=== PATIENT | female | born 1970 | race Caucasian/White ===

== ENCOUNTER → 2016-05-03 | Outpatient (CLI) | payer OTHER ==
--- NOTE | 2016-05-06 12:31 | MM ---
Reason for exam: screening (asymptomatic). Last mammogram was performed 1 year and 2 months ago. History: Took hormonal contraceptives for 10 years. Physical Findings: A clinical breast exam by your physician is recommended on an annual basis and results should be correlated with mammographic findings. MG Screening Mammo w CAD Bilateral CC and MLO view(s) were taken. Prior study comparison: March 10, 2015, bilateral MG screening mammo w CAD. January 28, 2014, bilateral MG screening mammo w CAD. There are scattered fibroglandular densities. No significant changes when compared with prior studies. ASSESSMENT: Negative, BI-RAD 1 RECOMMENDATION: Routine screening mammogram of both breasts in 1 year.
== END | disposition home or self-care (01) ==
LOC: RADMAMWWP 12:47
PROVIDERS: ATTEND Pediatrics
DX: Z12.31 Encounter for screening mammogram for malignant neoplasm of breast (principal)

== ENCOUNTER → 2016-07-24 | Outpatient (CLI) | payer OTHER ==
--- NOTE | 2016-07-24 12:55 | XR ---
Cervical spine HISTORY: Neck pain 3 views of the cervical spine No comparisons There is reversal the normal cervical lordosis. Minimal anterolisthesis grade 1 or 5. Loss of disc he ight C5-6, C6-7 with associated spondylosis. Prevertebral soft tissues are normal. IMPRESSION: Degenerative disc disease.
--- NOTE | 2016-07-24 13:28 | XR ---
Right shoulder HISTORY: Pain 3 views of the right shoulder No comparisons Bone mineralization, joint spaces and alignment are maintained. Right lung apex as visualized is norm al. Some hypertrophic change present at the acromioclavicular joint. IMPRESSION: Acromioclavicular joint arthropathy.
== END | disposition home or self-care (01) ==
LOC: RADXRMAIN 09:16
PROVIDERS: ATTEND Pediatrics
DX: M50.30 Other cervical disc degeneration, unspecified cervical region (principal); M12.811 Other specific arthropathies, not elsewhere classified, right shoulder
CPT/HCPCS: 72040

== ENCOUNTER → 2016-09-20 | Outpatient (CLI) | payer OTHER ==
--- NOTE | 2016-09-20 16:20 | MR ---
EXAMINATION TYPE: MR cervical spine wo con DATE OF EXAM: 09/20/2016 COMPARISON: NONE HISTORY: Neck pain, Rt arm pain/weakness TECHNIQUE: Multiplanar, multisequence images of the cervical spine were acquired. C2-C3: Posterior extension of endplate disc complex causes mild anterior mass effect on the thecal sa c in the right paracentral location. No significant stenosis or foraminal encroachment. C3-C4: Small posterior disc protrusion causes minimal anterior mass effect on the thecal sac, lateral extension of endplate disc complex causes minimal left-sided foraminal encroachment. C4-C5: Central posterior disc protrusion contacts anterior cervical cord. Only mild left-sided forami nal encroachment. C5-C6: Posterior extension of disc herniation contacts anterior cervical cord, there is bilateral for aminal encroachment due to circumferential extension of endplate disc complex. On mild central stenos is. C6-C7: Circumferential extension of endplate disc complex causes bilateral foraminal encroachment, mi ld anterior mass effect on the thecal sac. C7-T1: No evidence for degenerative disc disease. No disc bulge/herniation or protrusion. No Canal stenosis. Foramina are patent bilaterally. Cervical segments are intact. There is normal alignment. Cervical spinal cord is of normal signal. Craniovertebral junction relationships are within normal limits. Cervical vertebral bodies show pre served height and there is minimal retrolisthesis grade 1 C5-6, C6-7. There is loss of normal cervica l lordosis. Multilevel spondylosis is present, there is endplate discogenic marrow signal change with associated loss of disc height and signal at C4-5, C5-6 and C6-7. IMPRESSION: Degenerative disc disease and foraminal encroachment as described.
== END | disposition home or self-care (01) ==
LOC: RADMRIMAIN 15:06
PROVIDERS: ATTEND Physical Medicine & Rehabilitation
DX: M50.11 Cervical disc disorder with radiculopathy, high cervical region (principal); M19.011 Primary osteoarthritis, right shoulder
CPT/HCPCS: 72141

== ENCOUNTER → 2017-01-06 | Outpatient (CLI) | payer OTHER | END | disposition home or self-care (01) | LOC: RADMRIMAIN 07:36 | PROVIDERS: ATTEND Orthopaedic Surgery | DX: Z53.9 Procedure and treatment not carried out, unspecified reason (principal) ==

== ENCOUNTER → 2017-02-18 | Outpatient (CLI) | payer OTHER | END | disposition home or self-care (01) | LOC: LABWHC1 08:50 | PROVIDERS: ATTEND Nurse Practitioner Acute Care | DX: R90.82 White matter disease, unspecified (principal) | CPT/HCPCS: 36415; 82040; 82042; 82784; 83916 ==

== ENCOUNTER → 2017-04-18 | Outpatient (CLI) | payer OTHER ==
[2017-04-18 10:06] LABS: C Reactive Protein <5.0 mg/L (<10.0); Creatine Kinase 29 U/L (30-135)
[2017-04-18 16:08] LABS: Iron Saturation 24.12 (12.00-45.00)
== END | disposition home or self-care (01) ==
LOC: LABWHC1 08:56
PROVIDERS: ATTEND Nurse Practitioner Acute Care
DX: R90.82 White matter disease, unspecified (principal); R41.3 Other amnesia
CPT/HCPCS: 36415; 82085; 82550; 82728; 83540; 83550; 85652; 86038; 86140

== ENCOUNTER → 2017-10-11 | Outpatient (CLI) | payer OTHER ==
--- NOTE | 2017-10-12 20:51 | MR ---
EXAMINATION TYPE: MR brain wo/w con DATE OF EXAM: 10/11/2017 COMPARISON: Prior MRI brain December 19, 2016. HISTORY: White matter changes per order and patient. TECHNIQUE: Multiplanar, multisequence images of the brain and brainstem is performed without and with IV contras t, utilizing 9.5 mL intravenous Gadavist gadolinium contrast is administered intravenously. Demyelin ating disease protocol with additional Sagittal Flair sequence performed. FINDINGS: T2 Lesions Present : Yes Approximate Number of Lesions: Approximately 4-6 Locations Identified : Scattered Size of Reference Lesion(s): 1. A dominant 11 x 6 x 13 mm left frontal periventricular lesion axial image 17 and sagittal image 14 felt stable Enhancing Lesion(s) Present: No T1 Hypointense Lesion(s) Present: Yes Change from Prior: Stable Diffusion weighted images demonstrate no evidence of a recent infarct or other diffusion abnormality. There is no worrisome extra-axial fluid collection. The ventricular system and cisternal spaces ar e normal in size and appearance. The brain volume is age appropriate. Midline structures demonstrate normal morphology. The craniocervical junction appears within normal limits. Post contrast images demonstrate no abnormal enhancement. The dural venous sinuses appear pa tent. The visualized sinuses are clear and the globes are intact. Increased fluid signal right masto id air cells is now present. IMPRESSION: 1. Stable mild nonspecific white matter changes. No new or enhancing lesions are seen. 2. New focal fluid signal right mastoid air cells raises concern for mastoiditis, correlate clinicall y.
== END | disposition home or self-care (01) ==
LOC: RADMRIMAIN 13:59
PROVIDERS: ATTEND Nurse Practitioner Acute Care
DX: R90.89 Other abnormal findings on diagnostic imaging of central nervous system (principal)
CPT/HCPCS: 70553; A9581

== ENCOUNTER → 2017-10-31 | Outpatient (CLI) | payer OTHER ==
--- NOTE | 2017-11-03 12:42 | MM ---
Reason for exam: screening (asymptomatic). Last mammogram was performed 1 year and 6 months ago. History: Took hormonal contraceptives for 10 years. Physical Findings: A clinical breast exam by your physician is recommended on an annual basis and results should be correlated with mammographic findings. MG Screening Mammo w CAD Bilateral CC and MLO view(s) were taken. Prior study comparison: May 03, 2016, bilateral MG screening mammo w CAD. March 10, 2015, bilateral MG screening mammo w CAD. There are scattered fibroglandular densities. There is no discrete abnormality. No significant changes when compared with prior studies. ASSESSMENT: Negative, BI-RAD 1 RECOMMENDATION: Routine screening mammogram of both breasts in 1 year.
== END | disposition home or self-care (01) ==
LOC: RADMAMWWP 07:56
PROVIDERS: ATTEND Pediatrics
DX: Z12.31 Encounter for screening mammogram for malignant neoplasm of breast (principal)
CPT/HCPCS: 77067

== ENCOUNTER 2018-03-13 21:49 | Emergency (ER) | payer OTHER ==
[2018-03-13 22:11] VITALS: BP 115/81; PULSE 78; RESP 18; TEMP 98.3
--- NOTE | 2018-03-13 22:27 | ED ---
Syncope HPI - General Chief Complaint: Syncope Stated Complaint: tonsillitis, passed out, face injury Time Seen by Provider: 03/13/18 22:13 Source: patient, family Mode of arrival: wheelchair Limitations: no limitations - History of Present Illness Initial Comments: This patient is a 47-year-old woman who presents to be evaluated after she had a syncopal episode at home. The patient states she had not been feeling well for number days and then had seen her primary physician, was diagnosed tonsillitis and started antibiotic. She states she has had 1 day of antibiotic coverage. Tonight she went to use the bathroom. As she was walking to the commode she was feeling funny and lightheaded. She sat down, and then she states that she lost consciousness and fell off of the commode striking the left side of her head. She currently is complaining of some neck pain at the base of her neck and headache. Patient did not have any chest pain, palpitations, dyspnea or diaphoresis. She states that when she was younger she used to have passing out episodes but has not had one for many years. MD Complaint: loss of consciousness, collapsed Onset/Timin -: hour(s) Prodromal Symptoms: lightheaded Current Symptoms: back to baseline Treatments Prior to Arrival: none - Related Data Home Medications Medication Instructions Recorded Confirmed Fluticasone Propionate 2 spr INTRANASAL HS 01/06/14 08/05/14 Levothyroxine Sodium [Synthroid] 100 mcg PO DAILY 01/06/14 08/05/14 Previous Rx's Medication Instructions Recorded Acetaminophen-Codeine 300-30mg 1 - 2 each PO Q4HR PRN #40 tab 08/07/14 [Tylenol w/codeine #3] Ibuprofen [Motrin] 600 mg PO QID PRN #40 tab 08/07/14 Allergies Allergy/AdvReac Type Severity Reaction Status Date / Time azithromycin [From Zithromax] AdvReac DROP IN Verified 03/13/18 22:50 BLOOD PRESSURE moxifloxacin HCl AdvReac LOW BLOOD Verified 03/13/18 22:50 [From Avelox] PRESSURE Review of Systems ROS Statement: Those systems with pertinent positive or pertinent negative responses have been documented in the HPI. ROS Other: All systems not noted in ROS Statement are negative. Constitutional: Denies: fever, chills, weakness Eyes: Denies: eye pain, vision change ENT: Denies: hearing loss, epistaxis Respiratory: Denies: cough, dyspnea Cardiovascular: Reports: syncope. Denies: chest pain, palpitations, dyspnea on exertion, edema Gastrointestinal: Denies: abdominal pain, nausea, vomiting Genitourinary: Denies: dysuria, hematuria Musculoskeletal: Denies: back pain Skin: Denies: rash Neurological: Reports: as per HPI, headache. Denies: weakness, numbness, confusion Past Medical History Past Medical History: Thyroid Disorder Additional Past Medical History / Comment(s): HYPOTENSION History of Any Multi-Drug Resistant Organisms: None Reported Past Surgical History: Orthopedic Surgery, Tubal Ligation, Uterine Ablation Additional Past Surgical History / Comment(s): RIGHT KNEE SURGERY X4, LEFT KNEE SURGERY X4, LEEP PROCEDURE, JAW SURGERY, Past Anesthesia/Blood Transfusion Reactions: Motion Sickness Past Psychological History: No Psychological Hx Reported Smoking Status: Current every day smoker Past Alcohol Use History: Rare Past Drug Use History: None Reported - Past Family History Mother Family Medical History: Diabetes Mellitus General Exam Limitations: no limitations General appearance: alert, in no apparent distress Head exam: Present: atraumatic, normocephalic Eye exam: Present: normal appearance. Absent: scleral icterus, conjunctival injection ENT exam: Present: mucous membranes dry Neck exam: Present: tenderness, other (Cervical collar) Respiratory exam: Present: normal lung sounds bilaterally. Absent: respiratory distress, wheezes, rales, rhonchi, stridor, chest wall tenderness Cardiovascular Exam: Present: regular rate, normal rhythm, normal heart sounds. Absent: systolic murmur, diastolic murmur, rubs, gallop GI/Abdominal exam: Present: soft. Absent: distended, tenderness, guarding, rebound, rigid Extremities exam: Present: normal inspection, normal capillary refill. Absent: pedal edema, calf tenderness Back exam: Present: normal inspection. Absent: CVA tenderness (R), CVA tenderness (L) Neurological exam: Present: alert, oriented X3, CN II-XII intact. Absent: motor sensory deficit Skin exam: Present: warm, dry, intact, normal color. Absent: rash Course Vital Signs 03/13/18 03/14/18 22:06 01:01 Temperature 98.3 F Pulse Rate 78 Respiratory 18 Rate Blood Pressure 115/81 O2 Sat by Pulse 100 97 Oximetry EKG Findings - EKG Results: EKG: interpreted by INLA LIRIANO, sinus rhythm, normal axis, normal QRS, normal ST/ T, no acute changes - [place], Pacemaker, Normal: Normal tracing: normal tracing Medical Decision Making - Medical Decision Making Patient's 47-year-old woman with syncopal episode after walking to the commode and sitting down. She has returned to baseline. They're not appear to be any seizure type symptoms. Following workup, did discuss possible observation admission versus going home and the patient states she feels better and would like to go home. We discussed further care and return parameters. - Lab Data Result diagrams: 03/13/18 23:59 03/13/18 23:59 Lab Results 03/13/18 03/13/18 03/13/18 Range/Units 23:59 23:59 23:59 WBC 13.1 H (3.8-10.6) k/uL RBC 5.32 (3.80-5.40) m/uL Hgb 15.8 (11.4-16.0) gm/dL Hct 48.5 H (34.0-46.0) % MCV 91.3 (80.0-100.0) fL MCH 29.7 (25.0-35.0) pg MCHC 32.6 (31.0-37.0) g/dL RDW 14.0 (11.5-15.5) % Plt Count 305 (150-450) k/uL Neutrophils % 79 % Lymphocytes % 12 % Monocytes % 6 % Eosinophils % 1 % Basophils % 0 % Neutrophils # 10.3 H (1.3-7.7) k/uL Lymphocytes # 1.6 (1.0-4.8) k/uL Monocytes # 0.8 (0-1.0) k/uL Eosinophils # 0.2 (0-0.7) k/uL Basophils # 0.0 (0-0.2) k/uL PT 9.5 (9.0-12.0) sec INR 0.9 (<1.2) APTT 24.0 (22.0-30.0) sec D-Dimer 0.35 (<0.60) mg/L FEU Sodium (137-145) mmol/L Potassium (3.5-5.1) mmol/L Chloride (98-107) mmol/L Carbon Dioxide (22-30) mmol/L Anion Gap mmol/L BUN (7-17) mg/dL Creatinine (0.52-1.04) mg/dL Est GFR (CKD-EPI)AfAm (>60 ml/min/1.73 sqM) Est GFR (CKD-EPI)NonAf (>60 ml/min/1.73 sqM) Glucose (74-99) mg/dL Calcium (8.4-10.2) mg/dL Total Bilirubin (0.2-1.3) mg/dL AST (14-36) U/L ALT (9-52) U/L Alkaline Phosphatase (38-126) U/L Total Creatine Kinase 43 (30-135) U/L CK-MB (CK-2) 0.3 (0.0-2.4) ng/mL CK-MB (CK-2) Rel Index 0.7 Troponin I <0.012 (0.000-0.034) ng/mL Total Protein (6.3-8.2) g/dL Albumin (3.5-5.0) g/dL Urine Color Urine Appearance (Clear) Urine pH (5.0-8.0) Ur Specific [place] (1.001-1.035) Urine Protein (Negative) Urine Glucose (UA) (Negative) Urine Ketones (Negative) Urine Blood (Negative) Urine Nitrite (Negative) Urine Bilirubin (Negative) Urine Urobilinogen (<2.0) mg/dL Ur Leukocyte Esterase (Negative) 03/13/18 03/13/18 Range/Units 23:59 23:59 WBC (3.8-10.6) k/uL RBC (3.80-5.40) m/uL Hgb (11.4-16.0) gm/dL Hct (34.0-46.0) % MCV (80.0-100.0) fL MCH (25.0-35.0) pg MCHC (31.0-37.0) g/dL RDW (11.5-15.5) % Plt Count (150-450) k/uL Neutrophils % % Lymphocytes % % Monocytes % % Eosinophils % % Basophils % % Neutrophils # (1.3-7.7) k/uL Lymphocytes # (1.0-4.8) k/uL Monocytes # (0-1.0) k/uL Eosinophils # (0-0.7) k/uL Basophils # (0-0.2) k/uL PT (9.0-12.0) sec INR (<1.2) APTT (22.0-30.0) sec D-Dimer (<0.60) mg/L FEU Sodium 136 L (137-145) mmol/L Potassium 4.3 (3.5-5.1) mmol/L Chloride 99 (98-107) mmol/L Carbon Dioxide 28 (22-30) mmol/L Anion Gap 9 mmol/L BUN 16 (7-17) mg/dL Creatinine 0.80 (0.52-1.04) mg/dL Est GFR (CKD-EPI)AfAm >90 (>60 ml/min/1.73 sqM) Est GFR (CKD-EPI)NonAf 88 (>60 ml/min/1.73 sqM) Glucose 119 H (74-99) mg/dL Calcium 9.5 (8.4-10.2) mg/dL Total Bilirubin 0.6 (0.2-1.3) mg/dL AST 42 H (14-36) U/L ALT 66 H (9-52) U/L Alkaline Phosphatase 115 (38-126) U/L Total Creatine Kinase (30-135) U/L CK-MB (CK-2) (0.0-2.4) ng/mL CK-MB (CK-2) Rel Index Troponin I (0.000-0.034) ng/mL Total Protein 7.5 (6.3-8.2) g/dL Albumin 4.3 (3.5-5.0) g/dL Urine Color Yellow Urine Appearance Clear (Clear) Urine pH 7.5 (5.0-8.0) Ur Specific [place] 1.016 (1.001-1.035) Urine Protein Negative (Negative) Urine Glucose (UA) Negative (Negative) Urine Ketones 2+ H (Negative) Urine Blood Negative (Negative) Urine Nitrite Negative (Negative) Urine Bilirubin Negative (Negative) Urine Urobilinogen <2.0 (<2.0) mg/dL Ur Leukocyte Esterase Negative (Negative) Disposition Clinical Impression: Vasovagal syncope Disposition: HOME SELF-CARE Condition: Good Instructions: Syncope (ED) Is patient prescribed a controlled substance at d/c from ED?: No Referrals: José Luis Solano MD [Primary Care Provider] - 1-2 days
[2018-03-13] MEDS ORDERED: SODIUM CHLORIDE 0.9% 500 ML 500 ML IV STA (22:38)
--- NOTE | 2018-03-13 23:39 | XR ---
EXAMINATION TYPE: XR chest 1V portable DATE OF EXAM: 03/13/2018 COMPARISON: NONE HISTORY: Fall. Syncope TECHNIQUE: Single frontal view of the chest is obtained. FINDINGS: Heart and mediastinum are normal. Lungs are clear. Diaphragm is normal. Bony thorax appear s normal. IMPRESSION: Normal chest.
--- NOTE | 2018-03-13 23:41 | CT ---
EXAMINATION TYPE: CT brain mark carcamo DATE OF EXAM: 03/13/2018 COMPARISON: None HISTORY: syncope neck pain. Headache. CT DLP: 1268 mGycm Automated exposure control for dose reduction was used. TECHNIQUE: CT scan of the head and cervical spine are performed without contrast. FINDINGS: Ventricles of normal size. There is no mass effect nor midline shift. There is no sign of intracranial hemorrhage. Calvarium is intact. The cervical vertebra have fairly normal alignment. There is straightening of the spine. There is a f ew millimeter anterior subluxation of C4 in relation to C5. Posterior elements are intact. There is h ypertrophic facet arthropathy on the left side at C4-5. The skull base is intact. There is no evidenc e of cervical spine fracture. There is narrowing of disc spaces at C5-6 C6-7. IMPRESSION: Spondylotic changes in the cervical spine. No fracture seen. Negative CT scan of the brain.
[2018-03-14] MEDS ORDERED: KETOROLAC 30 MG/ML 1 ML VIAL IVP STA (00:02)
[2018-03-14 00:13] LABS: Basophils % (A) 0 %; Eosinophils # (A) 0.2 k/uL (0-0.7); Eosinophils % (A) 1 %; HCT 48.5 % (34.0-46.0); HGB 15.8 gm/dL (11.4-16.0); Lymphocytes # (A) 1.6 k/uL (1.0-4.8); Lymphocytes % (A) 12 %; MCH 29.7 pg (25.0-35.0); MCHC 32.6 g/dL (31.0-37.0); MCV 91.3 fL (80.0-100.0); Mean Platelet Volume 6.7; Monocytes # (A) 0.8 k/uL (0-1.0); Monocytes % (A) 6 %; Neutrophils # (A) 10.3 k/uL (1.3-7.7); Neutrophils % (A) 79 %; Platelet Count 305 k/uL (150-450); RBC 5.32 m/uL (3.80-5.40); WBC 13.1 k/uL (3.8-10.6)
[2018-03-14 00:25] LABS: Appearance,Urine Clear (Clear); Bilirubin,Urine Negative (Negative); Blood,Urine Negative (Negative); Color,Urine Yellow; Glucose,Urine (UA) Negative (Negative); Ketones,Urine 2+ (Negative); Leukocyte Esterase,Urine Negative (Negative); Nitrite,Urine Negative (Negative); PH, Urine 7.5 (5.0-8.0); Protein,Urine Negative (Negative); Specific Gravity,Urine 1.016 (1.001-1.035); Urobilinogen,Urine <2.0 mg/dL (<2.0)
[2018-03-14 00:26] LABS: ALT 66 U/L (9-52); AST 42 U/L (14-36); Albumin 4.3 g/dL (3.5-5.0); Alkaline Phosphatase 115 U/L (38-126); Anion Gap 9 mmol/L; Blood Urea Nitrogen 16 mg/dL (7-17); Calcium 9.5 mg/dL (8.4-10.2); Carbon Dioxide 28 mmol/L (22-30); Chloride 99 mmol/L (98-107); D-Dimer 0.35 mg/L FEU (<0.60); Glucose 119 mg/dL (74-99); INR 0.9 (<1.2); Potassium 4.3 mmol/L (3.5-5.1); Prothrombin Time 9.5 sec (9.0-12.0); Sodium 136 mmol/L (137-145); Total Bilirubin 0.6 mg/dL (0.2-1.3); Total Protein 7.5 g/dL (6.3-8.2)
[2018-03-14 00:36] LABS: Creatine Kinase 43 U/L (30-135)
[2018-03-14 00:49] LABS: Creatine Kinase MB 0.3 ng/mL (0.0-2.4); Troponin I <0.012 ng/mL (0.000-0.034)
== END 2018-03-14 01:30 | disposition home or self-care (01) ==
LOC: EC 21:49
DX: R55 Syncope and collapse (principal); R51 Headache; R42 Dizziness and giddiness; M54.2 Cervicalgia; E07.9 Disorder of thyroid, unspecified; F17.200 Nicotine dependence, unspecified, uncomplicated; Z79.890 Hormone replacement therapy; Z79.899 Other long term (current) drug therapy; Z88.1 Allergy status to other antibiotic agents
CPT/HCPCS: 36415; 93005; 85379; 80053; 82550; 82553; 84484; 85025; 85610; 85730; 81003; 71045; 72125; 70450; 99284; 96374; J1885

== ENCOUNTER → 2018-08-25 | Outpatient (CLI) | payer OTHER ==
--- NOTE | 2018-08-25 08:23 | US ---
EXAMINATION TYPE: US pelvic complete DATE OF EXAM: 08/25/2018 COMPARISON: CT 2010, US 2013 CLINICAL HISTORY: R10.30 Lower abdominal pain, unspecified. Patient feels lump LLQ TECHNIQUE: Transvaginal (TV). Transabdominal sonographic images of the pelvis were not acquired due to empty bladder. Transvaginal sonographic images were medically necessary to better assess the fol lowing anatomy: all Date of LMP: hysterectomy 4 years ago EXAM MEASUREMENTS: Uterus: Surgically absent cm Endometrial Stripe: Surgically absent cm Right Ovary: Not seen cm Left Ovary: Not seen cm 1. Uterus: Surgically absent 2. Endometrium: Surgically absent 3. Right Ovary: Obscured by overlying bowel gas 4. Left Ovary: Obscured by overlying bowel gas Spectral, color and waveform doppler imaging shows good arterial and venous flow within the ovaries ; there is no evidence for ovarian torsion. 5. Bilateral Adnexa: wnl 6. Posterior cul-de-sac: wnl Area of lump shows thickening = 6.3 x 4.5 x 2.6 cm. Nothing like this is seen on contralateral side. IMPRESSION: 1. Postsurgical changes with a 6.3 cm mixed echogenicity corresponding the palpable abnormality which is nonspecific. Recommend CT scan.
--- NOTE | 2018-08-25 08:24 | US ---
EXAMINATION TYPE: US abdomen complete DATE OF EXAM: 08/25/2018 COMPARISON: CT 2010 CLINICAL HISTORY: R10.30 Lower abdominal pain, unspecified. EXAM MEASUREMENTS: Liver Length: 15.4 cm Gallbladder Wall: 0.1 cm CBD: 0.3 cm Spleen: 10.3 cm Right Kidney: 10.2 x 4.1 x 4.0 cm Left Kidney: 10.2 x 4.2 x 4.0 cm Pancreas: Tail obscured by overlying bowel gas Liver: No masses seen Gallbladder: wnl Evidence for sonographic Florian's sign: No CBD: wnl Spleen: wnl Right Kidney: wnl Left Kidney: wnl Upper IVC: wnl Abd Aorta: wnl IMPRESSION: No acute process.
== END | disposition home or self-care (01) ==
LOC: RADUSWWP 06:49
PROVIDERS: ATTEND Pediatrics
DX: R10.30 Lower abdominal pain, unspecified (principal)
CPT/HCPCS: 76700; 76830

== ENCOUNTER → 2018-09-10 | Outpatient (CLI) | payer OTHER ==
--- NOTE | 2018-09-10 10:16 | CT ---
EXAMINATION TYPE: CT abdomen pelvis wo con DATE OF EXAM: 09/10/2018 COMPARISON: 02/08/2011 INDICATION: LLQ mass, abn US DLP: 431.1 mGycm, Automated exposure control for dose reduction was used. CONTRAST: 0 mL of Isovue 300. Study performed without Oral Contrast TECHNIQUE: Axial images were obtained from above the diaphragm to the pubic rami in the axial plane a t 5 mm thick sections. Reconstructed images are reviewed on the computer in the coronal plane. FINDINGS: Limited CT sections are obtained the lung bases. The lung bases are clear. CT ABDOMEN: There is a periumbilical hernia with an opening 1.2 cm. Liver: Normal Spleen: Normal Pancreas: Normal Adrenal glands: There is fullness of the left adrenal gland measuring 1.0 cm. Gallbladder: Normal Kidneys: No masses are evident. No hydronephrosis is present. No cysts are present. No renal stone s are evident. Aorta: Vascular calcification is within the aorta. Inferior vena cava: Normal. CT PELVIS: Loops of bowel within the abdomen and pelvis are normal. Study is without oral contrast limiting bowel evaluation. Multiple diverticuli without evidence of acute diverticulitis is present to the sig moid colon. Appendix: Not visualized. No suspicious inflammatory changes or dilated tubular structures are eviden t. Urinary bladder: Compressed with limited evaluation. Genitourinary structures: Uterus is not identified. Left adnexal region appears normal. There is like ly a left ovary remaining present measuring 1.8 x 2.8 cm a follicle may be present. No discrete janet s identified to correlate with the transvaginal ultrasound no suspicious subcutaneous abnormality is evident. Lymph nodes: Bilateral inguinal adenopathy is present. The largest on the right measures 1.2 cm. No s uspicious iliac chain wrapped greater canal lymphadenopathy is evident. No suspicious periaortic or r etrocaval adenopathy is evident. No retrocrural adenopathy is evident. Osseous structures: No suspicious lytic or sclerotic lesions. Be attempted sacralization of L5 on the right. IMPRESSIONS: 1. 1. Minimal prominence of the left adrenal gland. 2. Left ovary appears to be identified measuring 1.8 x 2.8 cm. 3. No suspicious 6 cm mass to correspond to reported abnormality and transvaginal ultrasound is evide nt in the left lower quadrant. 4. 1.2 cm right inguinal lymph node.
== END | disposition home or self-care (01) ==
LOC: RADCTMAIN 08:08
PROVIDERS: ATTEND Pediatrics
DX: R19.04 Left lower quadrant abdominal swelling, mass and lump (principal)
CPT/HCPCS: 74176

== ENCOUNTER → 2018-10-22 | Outpatient (CLI) | payer OTHER ==
[2018-10-22 12:28] LABS: Basophils # (A) 0.1 k/uL (0-0.2); Basophils % (A) 1 %; Eosinophils # (A) 0.2 k/uL (0-0.7); Eosinophils % (A) 3 %; HCT 47.8 % (34.0-46.0); Lymphocytes # (A) 1.6 k/uL (1.0-4.8); Lymphocytes % (A) 24 %; MCHC 33.4 g/dL (31.0-37.0); MCV 92.7 fL (80.0-100.0); Mean Platelet Volume 7.5; Monocytes # (A) 0.5 k/uL (0-1.0); Monocytes % (A) 7 %; Neutrophils # (A) 4.3 k/uL (1.3-7.7); Neutrophils % (A) 64 %; Platelet Count 289 k/uL (150-450); RBC 5.16 m/uL (3.80-5.40); RDW 13.6 % (11.5-15.5); WBC 6.8 k/uL (3.8-10.6)
== END | disposition home or self-care (01) ==
LOC: LABPAT 11:17
PROVIDERS: ATTEND Surgery
DX: Z01.812 Encounter for preprocedural laboratory examination (principal); K43.2 Incisional hernia without obstruction or gangrene
CPT/HCPCS: 36415; 85025

== ENCOUNTER 2018-11-03 07:30 | Day surgery (SDC) | payer OTHER ==
[2018-10-28 15:26] VITALS: BMI 26.6
[~2018-11-03 07:30] MED LIST: DEXAMETHASONE SOD PHOSPHATE 10 MG/ML 1 ML VIAL IV ONE; HEPARIN SODIUM,PORCINE 5,000 UNIT/ML 1 ML VIAL SQ ONE; LACTATED RINGERS 1,000 ML IV SCH; LIDOCAINE 1% 20 ML VIAL (10MG/ML) FOR IV START INTRADERMA PRN; ONDANSETRON 4 MG/2 ML VIAL IVP ONE; SCOPOLAMINE 1.5MG/72HR PATCH TRANSDERM ONE
[2018-11-03] MEDS ORDERED: MIDAZOLAM PF (FBP) 2 MG/2 ML VIAL IV ONE (09:10)
--- NOTE | 2018-11-03 09:10 | P.GSHP ---
History of Present Illness H&P Date: 11/03/18 Chief Complaint: Incisional hernia This a 48-year-old female who is developed an incisional hernia. Patient has advanced incision. She has an incisional hernia located near the umbilicus. She also feels a mass in the left lateral aspect of her Pfannenstiel incision. She presents today for laparoscopic robotic-assisted repair. Past Medical History Past Medical History: Osteoarthritis (OA), Thyroid Disorder Additional Past Medical History / Comment(s): HX OF SEIZURES WITH FEVERS, STATES LOW BP AND LOW HEART RATE, VARICOSE VEINS, SEASONAL ALLERGIES, HYPOTHYROID, STATES OCCASIONAL SWELLING IN LEGS., STATES HERNIAS AND MASS IN ABDOMEN. History of Any Multi-Drug Resistant Organisms: None Reported Past Surgical History: Hysterectomy, Orthopedic Surgery, Tubal Ligation, Uterine Ablation Additional Past Surgical History / Comment(s): RIGHT KNEE SURGERY X4, LEFT KNEE SURGERY X5, LEEP PROCEDURE, JAW SURGERY, Past Anesthesia/Blood Transfusion Reactions: No Reported Reaction Past Psychological History: No Psychological Hx Reported Smoking Status: Former smoker Past Alcohol Use History: Rare Additional Past Alcohol Use History / Comment(s): QUIT SMOKING 2013, STARTED SMOKING AT AGE 14 .,SMOKED 1/2 PPD. Past Drug Use History: None Reported - Past Family History Mother Family Medical History: Diabetes Mellitus Medications and Allergies Home Medications Medication Instructions Recorded Confirmed Type Levothyroxine Sodium [Synthroid] 100 mcg PO DAILY 01/06/14 10/28/18 History Acetaminophen [Tylenol Extra 1,000 mg PO DIRECTED PRN 10/28/18 10/28/18 History Strength] Acetaminophen/Diphenhydramine 1 tab PO HS PRN 10/28/18 10/28/18 History [Tylenol PM 500-25mg] Albuterol Inhaler [Ventolin Hfa 1 - 2 puff INHALATION RT-Q6H PRN 10/28/18 10/28/18 History Inhaler] Diclofenac Sodium [Voltaren] 50 mg PO TID PRN 10/28/18 10/28/18 History Dulera (Unknown Dose) 1 tab INHALATION DIRECTED PRN 10/28/18 History Fluticasone Nasal [place] [Flonase 1 spray EA NOSTRIL DAILY PRN 10/28/18 10/28/18 History Nasal [place]] Hydrochlorothiazide (Unk Dose) 1 tab PO DAILY 10/28/18 History Lipitor (Unknown Dose) 1 dose PO DAILY 10/28/18 11/03/18 History Singulair (Unknown Dose) 1 tab PO DAILY 10/28/18 11/03/18 History Tizanidine (Unknown Dose) 1 tab PO DAILY PRN 10/28/18 11/03/18 History Zyrtec (Unknown Dose) 1 tab PO HS 10/28/18 11/03/18 History Allergies Allergy/AdvReac Type Severity Reaction Status Date / Time azithromycin [From Zithromax] AdvReac DROP IN Verified 10/28/18 15:03 BLOOD PRESSURE moxifloxacin HCl AdvReac LOW BLOOD Verified 10/28/18 15:03 [From Avelox] PRESSURE Surgical - Exam Vital Signs Temp Pulse Resp BP Pulse Ox 97.7 F 62 18 125/77 96 11/03/18 08:05 11/03/18 08:05 11/03/18 08:05 11/03/18 08:05 11/03/18 08:05 - General well developed, well nourished, no distress - Eyes PERRL - ENT normal pinna - Neck no masses - Respiratory normal expansion - Cardiovascular Rhythm: regular - Abdomen Abdomen: soft, non tender Hernia: incisional (2 cm incisional hernia located near umbilicus. There is also a 1 cm mass in the left lower aspect of her Pfannenstiel incision) Assessment and Plan Assessment: Incisional hernia. We'll perform laparoscopic robotic assistance repair.
[2018-11-03] MEDS ORDERED: LIDOCAINE 1% INJ 10MG/ML (20 ML MDV) ONE (09:31)
[2018-11-03] MEDS ORDERED: GLYCOPYRROLATE 0.2 MG/ML 2 ML VIAL ONE (09:31)
[2018-11-03] MEDS ORDERED: ROPIVACAINE 5 MG/ML 30 ML VIAL ONE (09:31)
[2018-11-03] MEDS ORDERED: NEOSTIGMINE 1 MG/ML 10 ML VIAL ONE (09:31)
[2018-11-03] MEDS ORDERED: SUCCINYLCHOLINE CHLORIDE 100 MG/5 ML SYR IV ONE (09:31)
[2018-11-03] MEDS ORDERED: ROCURONIUM BROMIDE 10 MG/ML 10 ML VIAL IV ONE (09:31)
[2018-11-03] MEDS ORDERED: PROPOFOL 10 MG/ML 20 ML VIAL IV ONE (09:31)
[2018-11-03] MEDS ORDERED: fentaNYL (PF) 50 MCG/ML 2 ML AMP ONE (09:31)
[2018-11-03] MEDS ORDERED: LIDOCAINE 2%-EPI 1:100,000 20 ML VIAL ONE (09:31)
[2018-11-03] MEDS ORDERED: BUPIVACAIN-EPI 0.25%-1:200,000 30 ML VIAL SQ ONE (09:56)
[2018-11-03 10:50] VITALS: TEMP 97.6
--- NOTE | 2018-11-03 10:51 | P.OP ---
Date of Procedure: 11/03/18 Preoperative Diagnosis: Incisional hernia Postoperative Diagnosis: Incisional hernia Left ovarian cyst Procedure(s) Performed: Laparoscopic robotic-assisted repair of incisional hernia Left ovarian cystectomy Excision of incarcerated fat omentum Anesthesia: JOHANN Surgeon: Bonilla Miner Estimated Blood Loss (ml): 5 Pathology: other (Incarcerated fat) Condition: stable Disposition: PACU Description of Procedure: MThe patient was placed on the operating table in the supine position. He received general anesthesia. His abdomen was prepped and draped usual fashion. Using a 5 mm optical trocar under direct visualization the peritoneal cavity was entered in the right upper quadrant. The abdomen was then insufflated. The laparoscope was placed back into the perineal cavity. Next a 8 mm robotic trocar was placed in the right lower quadrant and a 12 mm robotic trocar was placed in the right lateral position. The original 5 mm trocar was exchanged for a 8 mm robotic trocar. The patient's placed in the left side up position. And the patient was docked to the robot. The incisional hernia was visualized. Using hook cautery the peritoneum over the incisional hernia was excised. The incarcerated fat/omentum was dissected free and sent to pathology. The fascial opening was repaired using 0V LOC suture. Next a piece of 11 cm round ventral light ST mesh was placed into the. Cavity and secured with 2 OV lock suture. The patient's left lower quadrant was examined. There appeared to be a 3 cm ovarian cysts. This was unroofed using left cautery. This was drained. The patient was undocked the robot. The needles were retrieved. The fascia of the 12 mm trocar site was closed with 0 Ethibond suture. Skin was closed interrupted 3-0 Monocryl suture. Dermabond dressings was applied. Patient tolerated procedure well and was sent to recovery room stable condition.
[2018-11-03] MEDS: HYDROmorphone 0.5 MG/0.5 ML SYRINGE IVP PRN ×2 (11:16→11:28)
[2018-11-03 11:33] VITALS: PULSE 60
[2018-11-03 11:58] VITALS: BP 106/74; RESP 18
--- NOTE | 2018-11-04 09:16 | P.ANPRN ---
Procedure Note - Anesthesia - Nerve Block Performed Bilateral Transversus Abdominis Single Time Out Performed: Yes Date of Procedure: 11/04/18 Procedure Start Time: : Procedure Stop Time: Location of Patient Procedure: PreOp Indication: Acute Post-Operative Pain, Requested by Surgeon Sedation Type: Sedate with meaningful contact maintained Preparation: Sterile Prep Position: Supine Needle Types: Pajunk Needle Gauge: 21 Ultrasound used to visualize needle placement: Yes Ultrasound used to observe medication spread: Yes Blood Aspirated: No Pain Paresthesia on Injection Noted: No Resistance on Injection: Normal Image Stored and Saved: Yes Events: Uneventful and Well Tolerated (ropi .5% 15cc plus xylo 2% with epi injected bilaterally)
== END 2018-11-03 12:50 | disposition home or self-care (01) ==
LOC: OR 07:30
PROVIDERS: ATTEND Surgery
DX: K43.0 Incisional hernia with obstruction, without gangrene (principal); N83.202 Unspecified ovarian cyst, left side; E78.5 Hyperlipidemia, unspecified; M19.90 Unspecified osteoarthritis, unspecified site; E03.9 Hypothyroidism, unspecified; J30.2 Other seasonal allergic rhinitis; Z79.890 Hormone replacement therapy; Z79.899 Other long term (current) drug therapy; Z90.710 Acquired absence of both cervix and uterus; Z98.890 Other specified postprocedural states; Z98.51 Tubal ligation status; Z86.79 Personal history of other diseases of the circulatory system; Z86.69 Personal history of other diseases of the nervous system and sense organs; Z87.891 Personal history of nicotine dependence; Z88.1 Allergy status to other antibiotic agents; Z83.3 Family history of diabetes mellitus
CPT/HCPCS: 49655; 58662; 64488; 86900; 86901; 86850; 88302; C1781; J1644; J1100; J2710; J0690; J2405; J2001; J3010; J2795; J0330; J2704; J1170; J2250

== ENCOUNTER → 2018-11-28 | Outpatient (CLI) | payer OTHER ==
--- NOTE | 2018-12-01 14:20 | MM ---
Reason for exam: screening (asymptomatic). Last mammogram was performed 1 year and 1 month ago. History: Took hormonal contraceptives for 10 years. Physical Findings: A clinical breast exam by your physician is recommended on an annual basis and results should be correlated with mammographic findings. MG Screening Mammo w CAD Bilateral CC and MLO view(s) were taken. Prior study comparison: October 31, 2017, bilateral MG screening mammo w CAD. May 03, 2016, bilateral MG screening mammo w CAD. The breast tissue is heterogeneously dense. This may lower the sensitivity of mammography. There is no discrete abnormality. ASSESSMENT: Negative, BI-RAD 1 RECOMMENDATION: Routine screening mammogram of both breasts in 1 year.
== END | disposition home or self-care (01) ==
LOC: RADMAMWWP 11:28
PROVIDERS: ATTEND Pediatrics
DX: Z12.31 Encounter for screening mammogram for malignant neoplasm of breast (principal)
CPT/HCPCS: 77067

== ENCOUNTER → 2019-11-12 | Outpatient (CLI) | payer OTHER ==
--- NOTE | 2019-11-12 11:47 | CT ---
EXAMINATION TYPE: CT sinus wo con DATE OF EXAM: 11/12/2019 COMPARISON: 01/29/2017 CT sinus HISTORY: Acute recurrent sinusitis CT DLP: 562.70 mGycm. Automated Exposure Control for Dose Reduction was Utilized. TECHNIQUE: CT scan of the sinuses is performed without contrast, axial images are obtained, coronal r eformatted images are also reviewed. FINDINGS: Right maxillary sinus mucosal thickening likely represents retention cyst as it is in simil ar configuration and decreased in size versus 2017. Left maxillary sinus is well aerated. There is mu cosal thickening of the bilateral ostiomeatal complexes, although patent bilaterally. The frontal, et hmoid, and sphenoid sinuses bilaterally are well-aerated without abnormal opacification. The frontoet hmoidal recesses are patent. 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 There is thin mucosal occlusion of the bilateral sphenoid ostia. The nasal passages are clear. There is rightward deviation of the nasal septum. Tiny lupe bullosa o f the left middle turbinate. Unchanged from 2017, left frontal extra-axial 8 mm ossific density (7:64) and right frontal extra-axi al 9 mm ossific density (7:58). IMPRESSION: 1. Right maxillary sinus redemonstrated mucosal thickening likely represents retention cyst, due to u nchanged configuration and decreased size versus 2017 comparison. 2. Paranasal sinus disease as above.
== END | disposition home or self-care (01) ==
LOC: RADCTMAIN 07:16
PROVIDERS: ATTEND Physician Assistant
DX: J32.0 Chronic maxillary sinusitis (principal); J32.4 Chronic pansinusitis
CPT/HCPCS: 70486

== ENCOUNTER 2019-11-20 12:58 | Emergency (ER) | payer OTHER ==
[2019-11-20 13:08] VITALS: TEMP 97.8
[2019-11-20 13:27] VITALS: RESP 20
[2019-11-20] MEDS ORDERED: methylPREDNISolone SOD SUCCI 125 MG/2 ML VIAL IV STA (13:28)
[2019-11-20] MEDS ORDERED: SODIUM CHLORIDE 0.9% 1,000 ML IV STA (13:28)
[2019-11-20] MEDS ORDERED: AMPICILLIN-SULBACTAM 3 GM in SODIUM CHLORIDE 0.9% 100 ML IVPB STA (13:29)
[2019-11-20] MEDS ORDERED: diphenhydrAMINE 50 MG/ML 1 ML VIAL IVP STA (13:29)
[2019-11-20] MEDS ORDERED: FAMOTIDINE 20 MG/2 ML VIAL IV STA (13:29)
--- NOTE | 2019-11-20 13:30 | ED ---
SOB HPI - General Chief Complaint: Shortness of Breath Stated Complaint: FERNANDO, Rash Time Seen by Provider: 11/20/19 13:11 Source: patient, RN notes reviewed, old records reviewed Mode of arrival: ambulatory Limitations: no limitations - History of Present Illness Initial Comments: This is a 49-year-old female presents today for evaluation. This patient presents today for evaluation regards to multiple complaints she complains of multiple rashes Rash rash on right upper extremity right lower extremity swelling over lower extremity and shortness of breath. Heaviness in her chest. Mild nausea no vomiting no fevers. Patient's been seen in urgent care for the rash no prior evaluation for shortness of breath MD Complaint: shortness of breath, cough, pain with inspiration -: days(s) Severity: moderate Severity scale (1-10): 5 Quality: throbbing Consistency: constant Improves With: nothing Worsens With: nothing Context: recent URI, recent illness Associated Symptoms: chest pain, pain with inspiration, cough - Related Data Home Medications Medication Instructions Recorded Confirmed Levothyroxine Sodium [Synthroid] 100 mcg PO DAILY 01/06/14 10/28/18 Acetaminophen [Tylenol Extra 1,000 mg PO DIRECTED PRN 10/28/18 10/28/18 Strength] Acetaminophen/Diphenhydramine 1 tab PO HS PRN 10/28/18 10/28/18 [Tylenol PM 500-25mg] Albuterol Inhaler (Mhu) [Ventolin 1 - 2 puff INHALATION RT-Q6H PRN 10/28/18 10/28/18 Hfa Inhaler] Diclofenac Sodium [Voltaren] 50 mg PO TID PRN 10/28/18 10/28/18 Dulera (Unknown Dose) 1 tab INHALATION DIRECTED PRN 10/28/18 Fluticasone Nasal [place] [Flonase 1 spray EA NOSTRIL DAILY PRN 10/28/18 10/28/18 Nasal [place]] Hydrochlorothiazide (Unk Dose) 1 tab PO DAILY 10/28/18 Lipitor (Unknown Dose) 1 dose PO DAILY 10/28/18 11/03/18 Singulair (Unknown Dose) 1 tab PO DAILY 10/28/18 11/03/18 Tizanidine (Unknown Dose) 1 tab PO DAILY PRN 10/28/18 11/03/18 Zyrtec (Unknown Dose) 1 tab PO HS 10/28/18 11/03/18 Previous Rx's Medication Instructions Recorded Docusate [Colace] 100 mg PO BID #20 capsule 11/03/18 HYDROcodone/APAP 5-325MG [[place] 1 tab PO Q6HR PRN #10 tab 11/03/18 5-325] Allergies Allergy/AdvReac Type Severity Reaction Status Date / Time azithromycin [From Zithromax] AdvReac DROP IN Verified 11/20/19 13:04 BLOOD PRESSURE moxifloxacin HCl AdvReac LOW BLOOD Verified 11/20/19 13:04 [From Avelox] PRESSURE Review of Systems ROS Statement: Those systems with pertinent positive or pertinent negative responses have been documented in the HPI. ROS Other: All systems not noted in ROS Statement are negative. Past Medical History Past Medical History: Thyroid Disorder Additional Past Medical History / Comment(s): HYPOTENSION History of Any Multi-Drug Resistant Organisms: None Reported Past Surgical History: Orthopedic Surgery, Tubal Ligation, Uterine Ablation Additional Past Surgical History / Comment(s): RIGHT KNEE SURGERY X4, LEFT KNEE SURGERY X4, LEEP PROCEDURE, JAW SURGERY, Past Anesthesia/Blood Transfusion Reactions: Motion Sickness Past Psychological History: No Psychological Hx Reported Smoking Status: Never smoker Past Alcohol Use History: Rare Past Drug Use History: None Reported - Past Family History Mother Family Medical History: Diabetes Mellitus General Exam Limitations: no limitations General appearance: alert, in no apparent distress Head exam: Present: atraumatic, normocephalic, normal inspection Eye exam: Present: normal appearance, PERRL, EOMI. Absent: scleral icterus, conjunctival injection, periorbital swelling ENT exam: Present: normal exam, mucous membranes moist Neck exam: Present: normal inspection. Absent: tenderness, meningismus, lymphadenopathy Respiratory exam: Present: normal lung sounds bilaterally. Absent: respiratory distress, wheezes, rales, rhonchi, stridor Cardiovascular Exam: Present: regular rate, normal rhythm, normal heart sounds. Absent: systolic murmur, diastolic murmur, rubs, gallop, clicks GI/Abdominal exam: Present: soft, normal bowel sounds. Absent: distended, tenderness, guarding, rebound, rigid Extremities exam: Present: normal inspection, full ROM, normal capillary refill. Absent: tenderness, pedal edema, joint swelling, calf tenderness Back exam: Present: normal inspection Neurological exam: Present: alert, oriented X3, CN II-XII intact Psychiatric exam: Present: normal affect, normal mood Skin exam: Present: warm, dry, intact, normal color. Absent: rash Course Vital Signs 11/20/19 11/20/19 11/20/19 13:04 13:24 13:54 Temperature 97.8 F Pulse Rate 84 88 Respiratory 18 20 20 Rate Blood Pressure 111/70 O2 Sat by Pulse 96 97 Oximetry - Reevaluation(s) Reevaluation #1: 11/20/19 13:48 Medical record is reviewed Reevaluation #2: 11/20/19 16:08 Patient still with some difficulty breathing Reevaluation #3: 11/20/19 16:09 Patient regarding findings, questions are answered Medical Decision Making - Medical Decision Making 49 female DF for evaluation, she does have right upper extremity cellulitis upper respiratory infection, we'll choose antibiotics and patient to be discharged home - Lab Data Result diagrams: 11/20/19 13:39 11/20/19 13:39 Lab Results 11/20/19 11/20/19 11/20/19 Range/Units 13:39 13:39 13:39 WBC 8.9 (3.8-10.6) k/uL RBC 4.88 (3.80-5.40) m/uL Hgb 15.2 (11.4-16.0) gm/dL Hct 44.0 (34.0-46.0) % MCV 90.2 (80.0-100.0) fL MCH 31.2 (25.0-35.0) pg MCHC 34.6 (31.0-37.0) g/dL RDW 13.5 (11.5-15.5) % Plt Count 283 (150-450) k/uL Neutrophils % 72 % Lymphocytes % 16 % Monocytes % 6 % Eosinophils % 4 % Basophils % 1 % Neutrophils # 6.5 (1.3-7.7) k/uL Lymphocytes # 1.5 (1.0-4.8) k/uL Monocytes # 0.5 (0-1.0) k/uL Eosinophils # 0.4 (0-0.7) k/uL Basophils # 0.0 (0-0.2) k/uL PT 9.8 (9.0-12.0) sec INR 0.9 (<1.2) APTT 22.0 (22.0-30.0) sec D-Dimer 0.26 (<0.60) mg/L FEU Sodium 137 (137-145) mmol/L Potassium 3.2 L (3.5-5.1) mmol/L Chloride 103 (98-107) mmol/L Carbon Dioxide 28 (22-30) mmol/L Anion Gap 6 mmol/L BUN 12 (7-17) mg/dL Creatinine 0.90 (0.52-1.04) mg/dL Est GFR (CKD-EPI)AfAm 87 (>60 ml/min/1.73 sqM) Est GFR (CKD-EPI)NonAf 75 (>60 ml/min/1.73 sqM) Glucose 144 H (74-99) mg/dL Plasma Lactic Acid Duc (0.7-2.0) mmol/L Calcium 9.5 (8.4-10.2) mg/dL Magnesium 2.0 (1.6-2.3) mg/dL Total Bilirubin 0.6 (0.2-1.3) mg/dL AST 32 (14-36) U/L ALT 38 H (4-34) U/L Alkaline Phosphatase 100 (38-126) U/L Creatine Kinase 49 (30-135) U/L Troponin I (0.000-0.034) ng/mL NT-Pro-B Natriuret Pep pg/mL Total Protein 6.7 (6.3-8.2) g/dL Albumin 3.9 (3.5-5.0) g/dL 11/20/19 11/20/19 11/20/19 Range/Units 13:39 13:39 13:39 WBC (3.8-10.6) k/uL RBC (3.80-5.40) m/uL Hgb (11.4-16.0) gm/dL Hct (34.0-46.0) % MCV (80.0-100.0) fL MCH (25.0-35.0) pg MCHC (31.0-37.0) g/dL RDW (11.5-15.5) % Plt Count (150-450) k/uL Neutrophils % % Lymphocytes % % Monocytes % % Eosinophils % % Basophils % % Neutrophils # (1.3-7.7) k/uL Lymphocytes # (1.0-4.8) k/uL Monocytes # (0-1.0) k/uL Eosinophils # (0-0.7) k/uL Basophils # (0-0.2) k/uL PT (9.0-12.0) sec INR (<1.2) APTT (22.0-30.0) sec D-Dimer (<0.60) mg/L FEU Sodium (137-145) mmol/L Potassium (3.5-5.1) mmol/L Chloride (98-107) mmol/L Carbon Dioxide (22-30) mmol/L Anion Gap mmol/L BUN (7-17) mg/dL Creatinine (0.52-1.04) mg/dL Est GFR (CKD-EPI)AfAm (>60 ml/min/1.73 sqM) Est GFR (CKD-EPI)NonAf (>60 ml/min/1.73 sqM) Glucose (74-99) mg/dL Plasma Lactic Acid Duc 1.9 (0.7-2.0) mmol/L Calcium (8.4-10.2) mg/dL Magnesium (1.6-2.3) mg/dL Total Bilirubin (0.2-1.3) mg/dL AST (14-36) U/L ALT (4-34) U/L Alkaline Phosphatase (38-126) U/L Creatine Kinase (30-135) U/L Troponin I <0.012 (0.000-0.034) ng/mL NT-Pro-B Natriuret Pep 114 pg/mL Total Protein (6.3-8.2) g/dL Albumin (3.5-5.0) g/dL - EKG Data -: EKG Interpreted by Me (EKG is sinus rhythm 81 MN 136 QRS 82 QTC 462) - Radiology Data Radiology results: report reviewed (Chest x-ray CT chest negative for acute disease ultrasound right lower extremity negative for acute disease), image reviewed Disposition Clinical Impression: Right arm cellulitis, Upper respiratory infection Disposition: HOME SELF-CARE Condition: Good Instructions (If sedation given, give patient instructions): Cellulitis (ED), Upper Respiratory Infection (ED) Is patient prescribed a controlled substance at d/c from ED?: No Referrals: José Luis Solano MD [Primary Care Provider] - 1-2 days
[2019-11-20 13:52] LABS: Basophils % (A) 1 %; Eosinophils # (A) 0.4 k/uL (0-0.7); Eosinophils % (A) 4 %; HGB 15.2 gm/dL (11.4-16.0); Lymphocytes # (A) 1.5 k/uL (1.0-4.8); Lymphocytes % (A) 16 %; MCH 31.2 pg (25.0-35.0); MCHC 34.6 g/dL (31.0-37.0); MCV 90.2 fL (80.0-100.0); Mean Platelet Volume 7.5; Monocytes # (A) 0.5 k/uL (0-1.0); Monocytes % (A) 6 %; Neutrophils # (A) 6.5 k/uL (1.3-7.7); Neutrophils % (A) 72 %; Platelet Count 283 k/uL (150-450); RBC 4.88 m/uL (3.80-5.40); RDW 13.5 % (11.5-15.5); WBC 8.9 k/uL (3.8-10.6)
[2019-11-20 14:05] LABS: Albumin 3.9 g/dL (3.5-5.0); Calcium 9.5 mg/dL (8.4-10.2); Potassium 3.2 mmol/L (3.5-5.1); Total Bilirubin 0.6 mg/dL (0.2-1.3); Total Protein 6.7 g/dL (6.3-8.2)
[2019-11-20 14:12] LABS: D-Dimer 0.26 mg/L FEU (<0.60); INR 0.9 (<1.2); Prothrombin Time 9.8 sec (9.0-12.0)
--- NOTE | 2019-11-20 14:53 | CT ---
EXAMINATION TYPE: CT angio chest DATE OF EXAM: 11/20/2019 COMPARISON: None HISTORY: FERNANDO, SOB, rash CT DLP: 369.3 mGycm Automated exposure control for dose reduction was used. CONTRAST: Performed with IV Contrast, patient injected with 100, wasted 20 mL of Isovue 300. There are 3-D post processed images. The lungs are clear of consolidation. There is mild coarsening of the interstitial markings. There is no mediastinal adenopathy. There are no hilar masses. Thoracic aorta is intact. There is no aneurysm or dissection. Bony thorax is intact. Sternum is intact. The ribs appear intact. There is intact thoracic aorta. There is no aneurysm or dissection. There is normal contrast opacific ation of the pulmonary arteries. There are no filling defects. IMPRESSION: No evidence of pulmonary embolism. Mild pulmonary interstitial density.
--- NOTE | 2019-11-20 14:54 | XR ---
EXAMINATION TYPE: XR chest 2V DATE OF EXAM: 11/20/2019 COMPARISON: 03/13/2018 HISTORY: Difficulty breathing TECHNIQUE: 2 views FINDINGS: Heart and mediastinum are normal. Lungs are clear of infiltrate. There is no heart failure. There are chest leads. Bony thorax is intact. IMPRESSION: No active cardiopulmonary disease. Normal heart. No change.
--- NOTE | 2019-11-20 15:52 | US ---
EXAMINATION TYPE: US venous doppler duplex LE RT DATE OF EXAM: 11/20/2019 3:42 PM COMPARISON: NONE CLINICAL HISTORY: sob. Right calf palpable and redness SIDE PERFORMED: Right TECHNIQUE: The lower extremity deep venous system is examined utilizing real time linear array sonog devan with graded compression, doppler sonography and color-flow sonography. VESSELS IMAGED: External Iliac Vein (EIV) Common Femoral Vein Deep Femoral Vein Greater Saphenous Vein * Femoral Vein Popliteal Vein Small Saphenous Vein * Proximal Calf Veins (* superficial vessels) Right Leg: Negative for DVT No abnormality visualized right calf. Normal superficial vein visualized at area of concern IMPRESSION: No evidence of deep vein thrombosis in the right leg.
[2019-11-20] MEDS ORDERED: SULFAMETHOX-TMP 800-160MG 1 EACH TAB PO STA (16:07)
[2019-11-20] MEDS ORDERED: SULFAMETH-TMP DS STARTER PACK 2 TAB BTL PO STA (16:31)
[2019-11-20 16:38] VITALS: BP 110/75; PULSE 95
== END 2019-11-20 16:38 | disposition home or self-care (01) ==
LOC: EC 12:58
DX: L03.113 Cellulitis of right upper limb (principal); J06.9 Acute upper respiratory infection, unspecified; E07.9 Disorder of thyroid, unspecified; Z79.890 Hormone replacement therapy; Z79.899 Other long term (current) drug therapy; Z88.1 Allergy status to other antibiotic agents
CPT/HCPCS: 36415; 93005; 85379; 83880; 80053; 82550; 83605; 83735; 84484; 85025; 85610; 85730; 71046; 93971; 71275; 99285; 96365; 96375 ×3; 96361; J1200; J2930; J0295; Q9967

== ENCOUNTER → 2021-11-28 | Outpatient (CLI) | payer OTHER ==
--- NOTE | 2021-11-29 02:42 | MR ---
EXAMINATION TYPE: MR lumbar spine wo con DATE OF EXAM: 11/28/2021 COMPARISON: None HISTORY: Low back pain into rt lower extremity, radiculpathy Multiplanar multi echo imaging of the lumbar spine performed with no contrast. The lumbar vertebrae have normal alignment. Disc spaces are fairly normal. There are small posterior disc bulging at L4-5. There is epidural mass in the spinal canal at the L4-5 level on the right side that is apparently synovial cyst arising from the facet joint with calcification that measures 11 x 2 0 mm. There is some impingement on the lateral recess. There is impingement on the right-sided L4-5 n eural foramen. There is no paraspinal mass. The posterior elements are intact. No compression fracture. Lumbar nerve roots have normal size. IMPRESSION: Large synovial cyst arising from the right-sided facet joint at L4-5 with impingement on the neural e lements. No fracture. No significant disc space narrowing. There is a mild relative spinal stenosis at L4-5.
== END | disposition home or self-care (01) ==
LOC: RADMRIMAIN 17:46
PROVIDERS: ATTEND Physical Medicine & Rehabilitation
DX: M71.38 Other bursal cyst, other site (principal)
CPT/HCPCS: 72148

== ENCOUNTER → 2021-12-07 | Outpatient (CLI) | payer OTHER ==
--- NOTE | 2021-12-10 10:19 | MM ---
Reason for Exam: Screening (asymptomatic). Last mammogram was performed 3 year(s) and 0 month(s) ago. Patient History: Menarche at age 11. First Full-Term at age 26. Hysterectomy at age 43. Patient used Hormonal Contraceptives for 10 years. Risk Values: Emily 5 year model risk: 1.2%. NCI Lifetime model risk: 9.6%. Prior Study Comparison: 05/03/2016 Bilateral Screening Mammogram, [facility]. 10/31/2017 Bilateral Screening Mammogram, [facility]. 11/28/2018 Bilateral Screening Mammogram, [facility]. Tissue Density: There are scattered fibroglandular densities. Findings: Analyzed By CAD. There is no suspicious group of microcalcifications or new suspicious mass in either breast. Overall Assessment: Negative, BI-RAD 1 Management: Screening Mammogram of both breasts in 1 year. A clinical breast exam by your physician is recommended on an annual basis and results should be correlated with mammographic findings. Electronically signed and approved by: Eddie Cuba M.D.
== END | disposition home or self-care (01) ==
LOC: RADMAMWWP 16:46
PROVIDERS: ATTEND Pediatrics
DX: Z12.31 Encounter for screening mammogram for malignant neoplasm of breast (principal)
CPT/HCPCS: 77067

== ENCOUNTER 2022-08-18 18:03 | Inpatient (IN) | payer OTHER ==
[2022-08-18] MEDS ORDERED: SODIUM CHLORIDE 0.9% 1,000 ML IV STA (20:02)
[2022-08-18] MEDS ORDERED: MECLIZINE 12.5 MG TAB PO STA (20:02)
--- NOTE | 2022-08-18 20:09 | ED ---
Dizziness HPI - General Chief Complaint: Dizziness Stated Complaint: poss Vertigo Time Seen by Provider: 08/18/22 19:18 Source: patient Mode of arrival: ambulatory - History of Present Illness Initial Comments: 52-year-old female with a past medical history significant for MS presents to the ED with a chief complaint of dizziness. Patient states 3 days ago started to experience dizziness that is constant in nature. Since onset she reports dizziness has increased. Patient describes dizziness as the room spinning and notes that she is uneven on her feet. Denies chest pain or shortness breath. Denies numbness or weakness. Denies visual changes. No other complaints. - Related Data Home Medications Medication Instructions Recorded Confirmed Levothyroxine Sodium [Synthroid] 100 mcg PO DAILY 01/06/14 08/18/22 Diclofenac Sodium [Voltaren] 50 mg PO TID 10/28/18 08/18/22 Atorvastatin [Lipitor] 20 mg PO HS 08/16/22 08/18/22 Cetirizine HCl [Zyrtec] 10 mg PO HS 08/16/22 08/18/22 Montelukast [Singulair] 10 mg PO DAILY 08/16/22 08/18/22 Pregabalin 150 mg PO TID 08/16/22 08/18/22 hydroCHLOROthiazide [Hydrodiuril] 25 mg PO DAILY 08/16/22 08/18/22 Cyclobenzaprine [Flexeril] 10 mg PO TID PRN 08/18/22 08/18/22 Allergies Allergy/AdvReac Type Severity Reaction Status Date / Time azithromycin [From Zithromax] AdvReac DROP IN Verified 08/18/22 20:09 BLOOD PRESSURE moxifloxacin HCl AdvReac LOW BLOOD Verified 08/18/22 20:09 [From Avelox] PRESSURE Review of Systems ROS Statement: Those systems with pertinent positive or pertinent negative responses have been documented in the HPI. ROS Other: All systems not noted in ROS Statement are negative. Past Medical History Past Medical History: Thyroid Disorder Additional Past Medical History / Comment(s): HYPOTENSION History of Any Multi-Drug Resistant Organisms: None Reported Past Surgical History: Hysterectomy, Orthopedic Surgery, Tubal Ligation, Uterine Ablation Additional Past Surgical History / Comment(s): RIGHT KNEE SURGERY X4, LEFT KNEE SURGERY X4, LEEP PROCEDURE, JAW SURGERY, Past Anesthesia/Blood Transfusion Reactions: Motion Sickness Past Psychological History: No Psychological Hx Reported Smoking Status: Never smoker Past Alcohol Use History: Rare Past Drug Use History: None Reported - Past Family History Mother Family Medical History: Diabetes Mellitus General Exam Limitations: no limitations General appearance: alert, in no apparent distress Head exam: Present: atraumatic, normocephalic Eye exam: Present: normal appearance, PERRL, EOMI ENT exam: Present: normal exam, mucous membranes moist Respiratory exam: Present: normal lung sounds bilaterally Cardiovascular Exam: Present: regular rate, normal rhythm GI/Abdominal exam: Present: soft (Nontender to palpation. No rebound guarding or rigidity.) Extremities exam: Present: other (Strength and Sensation 5/5 in bilateral upper and lower extremities. Radial pulses 2+. DP/PT pulses 2+.) Back exam: Present: normal inspection Neurological exam: Present: alert, oriented X3, CN II-XII intact (Finger to nose intact, rapid alternating hand movements intact. [id number] intact.) Psychiatric exam: Present: normal affect, normal mood Skin exam: Present: warm, dry Course Vital Signs 08/18/22 18:29 Temperature 97.5 F L Pulse Rate 57 L Respiratory 18 Rate Blood Pressure 127/82 O2 Sat by Pulse 98 Oximetry Medical Decision Making - Medical Decision Making Was pt. sent in by a medical professional or institution (MIGUEL A [facility]a, PROCESS INSPECTOR, urgent care, hospital, or snf...) When possible be specific @ -No Did you speak to anyone other than the patient for history (EMS, parent, family, police, friend...)? What history was obtained from this source @ -No Did you review nursing and triage notes (agree or disagree)? Why? @ -I reviewed and agree with nursing and triage notes Were old charts reviewed (outside hosp., previous admission, EMS record, old EKG, old radiological studies, urgent care reports/EKG's, snf records)? Report findings @ -No old charts were reviewed Differential Diagnosis (chest pain, altered mental status, abdominal pain women, abdominal pain men, vaginal bleeding, weakness, fever, dyspnea, syncope, h eadache, dizziness, GI bleed, back pain, seizure, CVA, palpatations, mental health, musculoskeletal)? @ -Differential Dizziness: Benign paroxysmal positional Vertigo, Menieres disease, otitis media, acoustic neuroma, vertebrobasilar insufficiency, cerebellar stroke, encephalitis, hypovolemic, arrhythmia, coronary artery syndrome, anemia, this is not meant to be an all-inclusive list EKG interpreted by me (3pts min.). @ -As above X-rays interpreted by me (1pt min.). @ -Chest x-ray showed no acute process CT interpreted by me (1pt min.). @ -CT of the brain showed no acute process U/S interpreted by me (1pt. min.). @ -None done What testing was considered but not performed or refused? (CT, X-rays, U/S, labs)? Why? @ -None What meds were considered but not given or refused? Why? @ -None Did you discuss the management of the patient with other professionals (professionals i.e. , PA, PROCESS INSPECTOR, lab, RT, psych nurse, director social service, senior data warehouse architect, teacher, neighborhood conservation officer, medical case worker)? Give summary @ -Spoke to Dr. Strange who accepts admission of the patient with consult to neurology. Was smoking cessation discussed for >3mins.? @ -No Was critical care preformed (if so, how long)? @ -No Were there social determinants of health that impacted care today? How? (Homelessness, low income, unemployed, alcoholism, drug addiction, transportation, low edu. Level, literacy, decrease access to med. care, penitentiary, rehab)? @ -No Was there de-escalation of care discussed even if they declined (Discuss DNR or withdrawal of care, Hospice)? DNR status @ -No What co-morbidities impacted this encounter? (DM, HTN, Smoking, COPD, CAD, Cancer, CVA, ARF, Chemo, Hep., AIDS, mental health diagnosis, sleep apnea, morbid obesity)? @ -MS, hypertension, hypercholesterolemia Was patient admitted / discharged? Hospital course, mention meds given and route, prescriptions, significant lab abnormalities, going to OR and other pe rtinent info. @ -Admitted. Patient had minimal improvement of her dizziness with meclizine. Imaging studies as above. Labs largely unremarkable. Patient will be admitted to observation with consult to neurology. Spoke to patient who is agreeable with plan of care. Undiagnosed new problem with uncertain prognosis? @ -No Drug Therapy requiring intensive monitoring for toxicity (Heparin, Nitro, Insulin, Cardizem)? @ -No Were any procedures done? @ -No Diagnosis/symptom? @ -Dizziness, history of MS Acute, or Chronic, or Acute on Chronic? @ -Acute Uncomplicated (without systemic symptoms) or Complicated (systemic symptoms)? @ -Uncomplicated Side effects of treatment? @ -No Exacerbation, Progression, or Severe Exacerbation? @ -No Poses a threat to life or bodily function? How? (Chest pain, USA, OR, pneumonia, PE, COPD, DKA, ARF, appy, cholecystitis, CVA, Diverticulitis, Homicidal, Suicidal, threat to staff... and all critical care pts) @ -No - Lab Data Result diagrams: 08/18/22 20:29 08/18/22 20:29 Lab Results 08/18/22 08/18/22 08/18/22 Range/Units 20:10 20:29 20:29 WBC 9.3 (3.8-10.6) k/uL RBC 5.15 (3.80-5.40) m/uL Hgb 15.8 (11.4-16.0) gm/dL Hct 46.6 H (34.0-46.0) % MCV 90.5 (80.0-100.0) fL MCH 30.6 (25.0-35.0) pg MCHC 33.8 (31.0-37.0) g/dL RDW 14.3 (11.5-15.5) % Plt Count 262 (150-450) k/uL MPV 8.2 Neutrophils % 66 % Lymphocytes % 23 % Monocytes % 6 % Eosinophils % 3 % Basophils % 1 % Neutrophils # 6.2 (1.3-7.7) k/uL Lymphocytes # 2.1 (1.0-4.8) k/uL Monocytes # 0.6 (0-1.0) k/uL Eosinophils # 0.3 (0-0.7) k/uL Basophils # 0.1 (0-0.2) k/uL Sodium 140 (137-145) mmol/L Potassium 3.7 (3.5-5.1) mmol/L Chloride 101 (98-107) mmol/L Carbon Dioxide 29 (22-30) mmol/L Anion Gap 10 mmol/L BUN 23 H (7-17) mg/dL Creatinine 0.79 (0.52-1.04) mg/dL Est GFR (CKD-EPI)AfAm >90 (>60 ml/min/1.73 sqM) Est GFR (CKD-EPI)NonAf 87 (>60 ml/min/1.73 sqM) Glucose 110 H (74-99) mg/dL Calcium 9.8 (8.4-10.2) mg/dL Total Bilirubin 0.6 (0.2-1.3) mg/dL AST 35 (14-36) U/L ALT 51 H (4-34) U/L Alkaline Phosphatase 146 H (38-126) U/L Troponin I (0.000-0.034) ng/mL Total Protein 7.7 (6.3-8.2) g/dL Albumin 4.5 (3.5-5.0) g/dL Urine Color Colorless Urine Appearance Clear (Clear) Urine pH 6.0 (5.0-8.0) Ur Specific [place] 1.006 (1.001-1.035) Urine Protein Negative (Negative) Urine Glucose (UA) Negative (Negative) Urine Ketones Negative (Negative) Urine Blood Negative (Negative) Urine Nitrite Negative (Negative) Urine Bilirubin Negative (Negative) Urine Urobilinogen <2.0 (<2.0) mg/dL Ur Leukocyte Esterase Small H (Negative) Urine RBC <1 (0-5) /hpf Urine WBC 5 (0-5) /hpf Ur Squamous Epith Cells 1 (0-4) /hpf Urine Bacteria Rare H (None) /hpf Urine Mucus Rare H (None) /hpf 08/18/22 Range/Units 20:29 WBC (3.8-10.6) k/uL RBC (3.80-5.40) m/uL Hgb (11.4-16.0) gm/dL Hct (34.0-46.0) % MCV (80.0-100.0) fL MCH (25.0-35.0) pg MCHC (31.0-37.0) g/dL RDW (11.5-15.5) % Plt Count (150-450) k/uL MPV Neutrophils % % Lymphocytes % % Monocytes % % Eosinophils % % Basophils % % Neutrophils # (1.3-7.7) k/uL Lymphocytes # (1.0-4.8) k/uL Monocytes # (0-1.0) k/uL Eosinophils # (0-0.7) k/uL Basophils # (0-0.2) k/uL Sodium (137-145) mmol/L Potassium (3.5-5.1) mmol/L Chloride (98-107) mmol/L Carbon Dioxide (22-30) mmol/L Anion Gap mmol/L BUN (7-17) mg/dL Creatinine (0.52-1.04) mg/dL Est GFR (CKD-EPI)AfAm (>60 ml/min/1.73 sqM) Est GFR (CKD-EPI)NonAf (>60 ml/min/1.73 sqM) Glucose (74-99) mg/dL Calcium (8.4-10.2) mg/dL Total Bilirubin (0.2-1.3) mg/dL AST (14-36) U/L ALT (4-34) U/L Alkaline Phosphatase (38-126) U/L Troponin I <0.012 (0.000-0.034) ng/mL Total Protein (6.3-8.2) g/dL Albumin (3.5-5.0) g/dL Urine Color Urine Appearance (Clear) Urine pH (5.0-8.0) Ur Specific [place] (1.001-1.035) Urine Protein (Negative) Urine Glucose (UA) (Negative) Urine Ketones (Negative) Urine Blood (Negative) Urine Nitrite (Negative) Urine Bilirubin (Negative) Urine Urobilinogen (<2.0) mg/dL Ur Leukocyte Esterase (Negative) Urine RBC (0-5) /hpf Urine WBC (0-5) /hpf Ur Squamous Epith Cells (0-4) /hpf Urine Bacteria (None) /hpf Urine Mucus (None) /hpf - EKG Data EKG Comments: EKG shows sinus bradycardia at a rate of [address] or T-wave changes. Pr 133, QRS 83, QT/QTc 432/414. Disposition Clinical Impression: Dizziness Disposition: ADMITTED IP TO THIS HOSP Condition: Good Referrals: José Luis Solano MD [Primary Care Provider] - 1-2 days
[2022-08-18 20:43] LABS: Basophils # (A) 0.1 k/uL (0-0.2); Basophils % (A) 1 %; Eosinophils # (A) 0.3 k/uL (0-0.7); Eosinophils % (A) 3 %; HCT 46.6 % (34.0-46.0); HGB 15.8 gm/dL (11.4-16.0); Lymphocytes # (A) 2.1 k/uL (1.0-4.8); Lymphocytes % (A) 23 %; MCH 30.6 pg (25.0-35.0); MCHC 33.8 g/dL (31.0-37.0); MCV 90.5 fL (80.0-100.0); Mean Platelet Volume 8.2; Monocytes # (A) 0.6 k/uL (0-1.0); Monocytes % (A) 6 %; Neutrophils # (A) 6.2 k/uL (1.3-7.7); Neutrophils % (A) 66 %; Platelet Count 262 k/uL (150-450); RBC 5.15 m/uL (3.80-5.40); RDW 14.3 % (11.5-15.5); WBC 9.3 k/uL (3.8-10.6)
[2022-08-18 20:50] LABS: Appearance,Urine Clear (Clear); Bacteria,Urine Rare /hpf; Bilirubin,Urine Negative (Negative); Blood,Urine Negative (Negative); Color,Urine Colorless; Glucose,Urine (UA) Negative (Negative); Ketones,Urine Negative (Negative); Leukocyte Esterase,Urine Small (Negative); Mucus,Urine Rare /hpf; Nitrite,Urine Negative (Negative); Protein,Urine Negative (Negative); RBC,Urine <1 /hpf (0-5); Specific Gravity,Urine 1.006 (1.001-1.035); Squamous Epithelial Cell,Urine 1 /hpf (0-4); Urobilinogen,Urine <2.0 mg/dL (<2.0); WBC,Urine 5 /hpf (0-5)
[2022-08-18 20:55] LABS: ALT 51 U/L (4-34); AST 35 U/L (14-36); African American GFR (CKD) >90 (>60 ml/min/1.73 sqM); Albumin 4.5 g/dL (3.5-5.0); Alkaline Phosphatase 146 U/L (38-126); Anion Gap 10 mmol/L; Blood Urea Nitrogen 23 mg/dL (7-17); Calcium 9.8 mg/dL (8.4-10.2); Carbon Dioxide 29 mmol/L (22-30); Chloride 101 mmol/L (98-107); Glucose 110 mg/dL (74-99); Non-African American GFR(CKD) 87 (>60 ml/min/1.73 sqM); Potassium 3.7 mmol/L (3.5-5.1); Sodium 140 mmol/L (137-145); Total Bilirubin 0.6 mg/dL (0.2-1.3); Total Protein 7.7 g/dL (6.3-8.2)
--- NOTE | 2022-08-18 21:31 | CT ---
EXAMINATION TYPE: CT brain wo con CT DLP: 1153.2 mGycm, Automated exposure control for dose reduction was used. DATE OF EXAM: 08/18/2022 8:46 PM COMPARISON: 03/13/2018. CLINICAL INDICATION:Female, 52 years old with history of dizziness, dizziness TECHNIQUE: Brain: Axial CT images of the brain were obtained with coronal and sagittal reformats created and rev iewed. Contrast used: None. Oral contrast used: None. FINDINGS: Brain: Extra-axial spaces: No abnormal extra-axial fluid collections. Ventricular system: Within normal limits Cerebral parenchyma: No acute intraparenchymal hemorrhage or mass effect. The stanley-white junction is well differentiated. Cerebellum: Unremarkable. Mass effect: No evidence of midline shift. Intracranial vasculature: unremarkable Soft tissues: Normal. Calvarium/osseous structures: No depressed skull fracture. Paranasal sinuses and mastoid air cells: Mild scattered paranasal sinus disease. Visualized orbits: Orbital contents are intact. IMPRESSION: No acute intracranial process.
[2022-08-18] MEDS ORDERED: ONDANSETRON 4 MG/2 ML VIAL IVP PRN (22:21)
[2022-08-18] MEDS ORDERED: NALOXONE 0.4 MG/ML 1 ML VIAL IV PRN (22:21)
[2022-08-18] MEDS: SODIUM CHLORIDE 0.9% 1,000 ML IV SCH (23:03)
[2022-08-19] MEDS ORDERED: CYCLOBENZAPRINE 10 MG TAB PO PRN (09:43)
--- NOTE | 2022-08-19 09:47 | P.HPIM ---
History of Present Illness H&P Date: 08/19/22 History of present illness; patient is a 52-year-old lady with past medical history significant for MS who presented to the ER because of dizziness. Patient stated the symptoms started 3 days ago, describes them as the room spinning around her. Patient also complaining of being unsteady on her gait. Denies any slurred speech. Denies any weakness of any extremity. Denies any recent falls. Because of this persistent dizziness, patient came to the ER Initial lab work done showed WBC 9.3, hemoglobin 15.8, sodium 140, potassium 3.7, BUN 20, creatinine 0.79, CT brain negative for any acute intracranial process. Patient was admitted to medicine service REVIEW OF SYSTEMS: CONSTITUTIONAL: No fever, no malaise, no fatigue. HEENT: No recent visual problems or hearing problems. Denied any sore throat. CARDIOVASCULAR: No chest pain, orthopnea, PND, no palpitations, no syncope. PULMONARY: No shortness of breath, no cough, no hemoptysis. GASTROINTESTINAL: No diarrhea, no nausea, no vomiting, no abdominal pain. NEUROLOGICAL: As mentioned in HPI HEMATOLOGICAL: Denies any bleeding or petechiae. GENITOURINARY: Denies any burning micturition, frequency, or urgency. MUSCULOSKELETAL/RHEUMATOLOGICAL: Denies any joint pain, swelling, or any muscle pain. ENDOCRINE: Denies any polyuria or polydipsia. The rest of the 14-point review of systems is negative. PHYSICAL EXAMINATION: GENERAL: The patient is alert and oriented x3, not in any acute distress. Well developed, well nourished. HEENT: Pupils are round and equally reacting to light. EOMI. No scleral icterus. No conjunctival pallor. Normocephalic, atraumatic. No pharyngeal erythema. No thyromegaly. CARDIOVASCULAR: S1 and S2 present. No murmurs, rubs, or gallops. PULMONARY: Chest is clear to auscultation, no wheezing or crackles. ABDOMEN: Soft, nontender, nondistended, normoactive bowel sounds. No palpable organomegaly. MUSCULOSKELETAL: No joint swelling or deformity. EXTREMITIES: No cyanosis, clubbing, or pedal edema. NEUROLOGICAL: Gross neurological examination did not reveal any focal deficits. SKIN: No rashes. Assessment and plan Dizziness Hypertension Hypothyroidism Hyperlipidemia Plan; Monitor vital signs Monitor CBC Monitor CMP Hold blood pressure medications for now. Continue IV fluid Check orthostatics Resume Synthroid ResumeLipitor Consult neurology Past Medical History Past Medical History: Thyroid Disorder Additional Past Medical History / Comment(s): HYPOTENSION History of Any Multi-Drug Resistant Organisms: None Reported Past Surgical History: Hysterectomy, Orthopedic Surgery, Tubal Ligation, Uterine Ablation Additional Past Surgical History / Comment(s): RIGHT KNEE SURGERY X4, LEFT KNEE SURGERY X4, LEEP PROCEDURE, JAW SURGERY, x23 back surgeries Past Anesthesia/Blood Transfusion Reactions: Motion Sickness Past Psychological History: No Psychological Hx Reported Smoking Status: Former smoker Past Alcohol Use History: Rare Additional Past Alcohol Use History / Comment(s): STARTED SMOKING AT AGE 14. stopped 8 years ago Past Drug Use History: None Reported - Past Family History Mother Family Medical History: Diabetes Mellitus Medications and Allergies Home Medications Medication Instructions Recorded Confirmed Type Levothyroxine Sodium [Synthroid] 100 mcg PO DAILY 01/06/14 08/18/22 History Diclofenac Sodium [Voltaren] 50 mg PO TID 10/28/18 08/18/22 History Atorvastatin [Lipitor] 20 mg PO HS 08/16/22 08/18/22 History Cetirizine HCl [Zyrtec] 10 mg PO HS 08/16/22 08/18/22 History Montelukast [Singulair] 10 mg PO DAILY 08/16/22 08/18/22 History Pregabalin 150 mg PO TID 08/16/22 08/18/22 History hydroCHLOROthiazide [Hydrodiuril] 25 mg PO DAILY 08/16/22 08/18/22 History Cyclobenzaprine [Flexeril] 10 mg PO TID PRN 08/18/22 08/18/22 History Allergies Allergy/AdvReac Type Severity Reaction Status Date / Time azithromycin [From Zithromax] AdvReac DROP IN Verified 08/18/22 20:09 BLOOD PRESSURE moxifloxacin HCl AdvReac LOW BLOOD Verified 08/18/22 20:09 [From Avelox] PRESSURE Physical Exam Vitals: Vital Signs Temp Pulse Pulse Resp BP BP Pulse Ox 08/19/22 07:06 97.5 F L 63 16 103/72 98 08/19/22 03:05 97.3 F L 63 14 125/82 97 08/19/22 02:14 60 18 120/76 97 08/18/22 23:59 67 18 115/69 97 08/18/22 22:00 68 18 130/74 96 08/18/22 18:29 97.5 F L 57 L 18 127/82 98 Intake and Output 08/18/22 08/19/22 08/19/22 22:59 06:59 14:59 Other: # Voids 1 Weight 63.503 kg 63.503 kg Results CBC & Chem 7: 08/18/22 20:29 08/18/22 20:29 Labs: Abnormal Lab Results - Last 24 Hours (Table) 08/18/22 08/18/22 08/18/22 Range/Units 20:10 20:29 20:29 Hct 46.6 H (34.0-46.0) % BUN 23 H (7-17) mg/dL Glucose 110 H (74-99) mg/dL ALT 51 H (4-34) U/L Alkaline Phosphatase 146 H (38-126) U/L Ur Leukocyte Esterase Small H (Negative) Urine Bacteria Rare H (None) /hpf Urine Mucus Rare H (None) /hpf Thrombosis Risk Factor Assmnt - Choose All That Apply Any of the Below Risk Factors Present?: Yes Each Factor Represents 1 point: Age 41-60 years Other Risk Factors: No Other congenital or acquired thrombophilia - If yes, enter type in comment: No Thrombosis Risk Factor Assessment Total Risk Factor Score: 1 Thrombosis Risk Factor Assessment Level: Low Risk
[2022-08-19] MEDS ORDERED: ACETAMINOPHEN TAB 325 MG TAB PO PRN (10:52)
[2022-08-19] MEDS: SODIUM CHLORIDE 0.9% 1,000 ML IV SCH (11:02)
[2022-08-19] MEDS ORDERED: MECLIZINE 25 MG TAB PO PRN (12:41)
--- NOTE | 2022-08-19 12:42 | P.CNNES ---
History of Present Illness Consult date: 08/19/22 Requesting physician: Isacc Hancock Reason for Consult: Dizziness, history of MS History of Present Illness: Patient is a 52-year-old right-handed female with history of multiple sclerosis, came to the hospital yesterday at 6:03 PM for acute onset of vertigo. Patient states that her symptoms started on night 08/15/2022. Patient states that that morning she went to her orthopedic surgeon for a 6 month postop follow-up visit for her history of low back surgery that she had in January 2022. She remembers that she was fine during the day. At night after dinner, when she was getting ready to go to the bed, the symptoms started. When she tried to lay down in the bed, symptoms developed with spinning. Next day on Friday, Friday and Friday the symptoms continued to get worse. While walking she was feeling tipsy like she will fall. When walking, she has to hold onto her son or her . Yesterday on Friday, when she went to her father's house, and when she was coming back, she has to hang onto her son or her . Patient says that when she is moving, especially when she is laying in the bed, the room spins. It lasts for a couple minutes and then goes away. When walking, she is dizzy, off balance, like tipsy. The symptoms are worse when she lays flat in the bed. Patient denies any history of head trauma, any recent flulike symptoms or upper respiratory infection. Vital signs on arrival blood pressure 127/82, pulse rate 57 temperature 97.5. Blood tests shows normal CBC, Chem-20, with slightly elevated ALT 51. Troponin negative. UA negative. EKG shows sinus bradycardia. CT head showed no acute intracranial process. I personally reviewed CT head, agree with the findings. On my review, the visualized paranasal sinuses, and external auditory canals are clear. Patient had an MRI of the brain with and without contrast previously on 10/11/2017, which revealed stable mild nonspecific white matter changes. No new or enhancing lesions are seen. New focal fluid signal right mastoid air cells raises concern for mastoiditis, correlate clinically. I personally reviewed MRI of the brain from 10/11/2017, and the lesion involving the frontal horn of the lateral ventricle is highly suggestive of demyelinating disease. Otherwise no significant abnormalities. 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 Mild relative spinal stenosis at L4 5. Patient says that she was diagnosed with multiple sclerosis in November 2016, when she developed strokelike symptoms with paresthesias involving left side of the body, just like her left side was connected to a battery. She was also having some speech difficulty, walking sideways, couldn't speak up words paty ectly. She was seen by Dr. Walker office, underwent lumbar puncture and MRI, and was diagnosed with MS. Patient has never tried any disease modifying agents, as she has never had any more relapses. Patient denies any diabetes or hypertension. Patient has smoked half pack per day for 30 years, quit 15 years ago. Denies any use of alcohol or drugs. Patient has history of low back surgery in January 2022. Home medications include levothyroxine 100 g, diclofenac 50 mA 3 times a day, HCTZ 25 mg, Lyrica 150 mg 3 times a day, Zyrtec 10 mg, Singulair, Lipitor 20 mg and Flexeril 10 mg 3 times a day. Patient has positive family history of MS in her cousin. Her son has essential tremors and abdominal migraines. One of her niece has leukodystrophy. Review of Systems Patient admits to having some mild occipital headache. Constitutional: Denies chills, Denies fever Eyes: denies blurred vision, denies diplopia, denies pain Ears: deny: decreased hearing, ear discharge, earache, tinnitus Ears, nose, mouth and throat: Reports headache, Denies sore throat Cardiovascular: Denies chest pain, Denies shortness of breath Respiratory: Denies cough, Denies excessive sputum Gastrointestinal: Denies abdominal pain, Denies diarrhea, Denies nausea, Denies vomiting Genitourinary: Denies dysuria, Denies hematuria, Denies urge incontinence, Denies urinary frequency Musculoskeletal: Reports low back pain, Denies myalgias Integumentary: Denies pruritus, Denies rash Neurological: Reports as per HPI Psychiatric: Denies anxiety, Denies depression Endocrine: Denies fatigue, Denies weight change Past Medical History Past Medical History: Thyroid Disorder Additional Past Medical History / Comment(s): HYPOTENSION History of Any Multi-Drug Resistant Organisms: None Reported Past Surgical History: Hysterectomy, Orthopedic Surgery, Tubal Ligation, Uterine Ablation Additional Past Surgical History / Comment(s): RIGHT KNEE SURGERY X4, LEFT KNEE SURGERY X4, LEEP PROCEDURE, JAW SURGERY, x23 back surgeries Past Anesthesia/Blood Transfusion Reactions: Motion Sickness Past Psychological History: No Psychological Hx Reported Smoking Status: Former smoker Past Alcohol Use History: Rare Additional Past Alcohol Use History / Comment(s): STARTED SMOKING AT AGE 14. stopped 8 years ago Past Drug Use History: None Reported - Past Family History Mother Family Medical History: Diabetes Mellitus Medications and Allergies Home Medications Medication Instructions Recorded Confirmed Type Levothyroxine Sodium [Synthroid] 100 mcg PO DAILY 01/06/14 08/18/22 History Diclofenac Sodium [Voltaren] 50 mg PO TID 10/28/18 08/18/22 History Atorvastatin [Lipitor] 20 mg PO HS 08/16/22 08/18/22 History Cetirizine HCl [Zyrtec] 10 mg PO HS 08/16/22 08/18/22 History Montelukast [Singulair] 10 mg PO DAILY 08/16/22 08/18/22 History Pregabalin 150 mg PO TID 08/16/22 08/18/22 History hydroCHLOROthiazide [Hydrodiuril] 25 mg PO DAILY 08/16/22 08/18/22 History Cyclobenzaprine [Flexeril] 10 mg PO TID PRN 08/18/22 08/18/22 History Allergies Allergy/AdvReac Type Severity Reaction Status Date / Time azithromycin [From Zithromax] AdvReac DROP IN Verified 08/18/22 20:09 BLOOD PRESSURE moxifloxacin HCl AdvReac LOW BLOOD Verified 08/18/22 20:09 [From Avelox] PRESSURE Physical Examination - Vital Signs Vital Signs: Vital Signs Temp Pulse Pulse Resp BP BP Pulse Ox 08/19/22 07:06 97.5 F L 63 16 103/72 98 08/19/22 03:05 97.3 F L 63 14 125/82 97 08/19/22 02:14 60 18 120/76 97 08/18/22 23:59 67 18 115/69 97 08/18/22 22:00 68 18 130/74 96 08/18/22 18:29 97.5 F L 57 L 18 127/82 98 Intake and Output 08/18/22 08/19/22 08/19/22 22:59 06:59 14:59 Other: # Voids 1 Weight 63.503 kg 63.503 kg Patient is a middle aged female, very pleasant, in no acute distress. Patient is alert awake oriented to time place and person. Speech and language functions are normal. Patient can name and repeat very well. No aphasia or dysarthria. Attention, concentration and fund of knowledge is adequate. On cranial nerve examination, pupils are equal, round and reacting to light, visual wolfe are full on confrontation, with no neglect on double simultaneous stimulation. Extraocular muscles are intact with no nystagmus. Face is symmetric, tongue protrudes to the midline. Palatal elevation and sensation normal, hearing and shoulder shrug normal, facial sensation normal. On muscle strength testing, there is no pronator drift and the strength is normal in arms and legs distally and proximally. Deep tendon reflexes are (right/left) biceps 2/2, brachioradialis 2/2, knees 1/2, ankles 1+2/1+2 and plantars are downgoing bilaterally. Sensory to touch is equal with no neglect on double simultaneous stimulation. Cerebellar function showed no ataxia for icflxc-im-tery testing. No dysdiadochokinesia. No ataxia for ncid-gr-pccn testing on either side. Tone and bulk of muscles normal. Gait deferred.. On general examination, there is no carotid bruit or murmur, S1-S2 audible. Chest is clear on consultation. Abdomen is soft nontender. No organomegaly, bowel sounds present. Peripheral pulses are present. No edema. Results - Laboratory Findings CBC and BMP: 08/18/22 20:29 08/18/22 20:29 Abnormal Lab Findings: Abnormal Labs 08/18/22 08/18/22 08/18/22 20:10 20:29 20:29 Hct 46.6 H BUN 23 H Glucose 110 H ALT 51 H Alkaline Phosphatase 146 H Ur Leukocyte Esterase Small H Urine Bacteria Rare H Urine Mucus Rare H Assessment and Plan Assessment: * New onset vertigo, unclear etiology. Rule out MS exacerbation * History of multiple sclerosis versus clinically isolated syndrome. Patient not on disease modifying agent. * X tobacco use Plan: * MRI of the brain with and without contrast to evaluate for MS exacerbation. * Meclizine as needed * B12, folate, TSH, lipid panel and hemoglobin A1c * Telemetry monitoring showing sinus rhythm between 60-70. No other arrhythmia. * Neurology will follow. Thank you for the consult. Time with Patient: Greater than 30
[2022-08-19] MEDS: ETODOLAC 200 MG CAPSULE PO SCH ×2 (15:11→20:30)
[2022-08-19] MEDS: PREGABALIN 75 MG CAP PO SCH ×2 (15:11→20:30)
[2022-08-19 16:26] LABS: Glucose,Whole Blood 125 mg/dL (70-110)
[2022-08-19 17:23] LABS: Chol/HDL Ratio 3.05 Ratio; LDL Cholesterol,Calculated 95.1 mg/dL (0.0-131.0)
[2022-08-19] MEDS ORDERED: LORATADINE 10 MG TAB PO SCH (21:00)
[2022-08-19] MEDS ORDERED: ATORVASTATIN 20 MG TAB PO SCH (21:00)
[2022-08-20] MEDS: SODIUM CHLORIDE 0.9% 1,000 ML IV SCH (00:37)
[2022-08-20] MEDS ORDERED: LEVOTHYROXINE 100 MCG TAB PO SCH (06:30)
[2022-08-20 08:00] VITALS: BP 117/57; PULSE 46; RESP 14; TEMP 97.5
[2022-08-20] MEDS: PREGABALIN 75 MG CAP PO SCH (08:46)
[2022-08-20] MEDS: ETODOLAC 200 MG CAPSULE PO SCH (08:46)
[2022-08-20] MEDS ORDERED: hydroCHLOROthiazide 25 MG TAB PO SCH (09:00)
[2022-08-20] MEDS ORDERED: MONTELUKAST 10 MG TAB PO SCH (09:00)
--- NOTE | 2022-08-20 11:56 | MR ---
EXAMINATION TYPE: MR brain wo/w con DATE OF EXAM: 08/20/2022 11:17 AM CLINICAL INDICATION:Female, 52 years old with history of MS, new onset vertigo; Dizziness, MS, left s marilin tingling. COMPARISON: CT brain 08/18/2022, MRI 10/12/20192017 TECHNIQUE: Multi planar, multi sequence imaging was performed through the brain including: T1, T2, In version recovery, susceptibility weighted imaging and gradient echo imaging and Diffusion weighted im aging. The patient was then given intravenous contrast and multi planar, T1 fat-saturation images wer e obtained. IV Contrast: 6.5 cc Gadavist FINDINGS: The stanley-white junctions, ventricular system, basal cisterns appear unremarkable. Diffusion-weighted imaging shows no evidence of restricted diffusion to suggest acute/subacute infarct. Intracranial art erial flow voids are maintained. Midline structures show no abnormality minimal left periventricular intraparenchymal horn white matter changes and left frontal lobes deep white matter changes series 60 2 image 18, image 19 and image 16. Right choroidal fissure cyst. The susceptibility weighted images do not reveal any evidence for micro-hemorrhage. After administrat ion of gadolinium, no abnormal enhancement is seen. The bone marrow signal is within normal limits. Paranasal sinuses and mastoid air cells: No significant paranasal sinus disease. Visualized orbits: Orbital contents are intact. IMPRESSION: 1. No evidence restricted diffusion or abnormal enhancement to suggest active demyelination. Few scat tered white matter changes without evidence for postcontrast enhancement or restricted diffusion to s uggest active demyelination. 2. No evidence of intracranial mass, acute/subacute infarct, or abnormal enhancement.
--- NOTE | 2022-08-20 13:16 | P.DS ---
Providers Date of admission: 08/20/22 07:06 Expected date of discharge: 08/20/22 Attending physician: Brent Strange MD Consults: 08/18/22 22:21 Consult Physician Urgent Consulting Provider: Chiki Owen Consult Reason/Comments: Dizziness, hx of MS Do you want consulting provider notified?: Yes Primary care physician: José Luis [facility] Course: Discharge diagnoses; Dizziness Hypertension Hypothyroidism Hyperlipidemia History of MS Hospital course; patient is a 52-year-old lady with past medical history significant for MS who presented to the ER because of dizziness. Patient stated the symptoms started 3 days ago, describes them as the room spinning around her. Patient also complaining of being unsteady on her gait. Denies any slurred speech. Denies any weakness of any extremity. Denies any recent falls. Because of this persistent dizziness, patient came to the ER Initial lab work done showed WBC 9.3, hemoglobin 15.8, sodium 140, potassium 3.7, BUN 20, creatinine 0.79, CT brain negative for any acute intracranial process. Patient was admitted to medicine service 08/20. Patient seen and examined. Neurology evaluated the patient, ordered MRI brain which was negative for any acute stroke. Neurology cleared the patient for discharge. Patient's HCTZ was discontinued as patient is normotensive PHYSICAL EXAMINATION: GENERAL: The patient is alert and oriented x3, not in any acute distress. Well developed, well nourished. HEENT: Pupils are round and equally reacting to light. EOMI. No scleral icterus. No conjunctival pallor. Normocephalic, atraumatic. No pharyngeal erythema. No thyromegaly. CARDIOVASCULAR: S1 and S2 present. No murmurs, rubs, or gallops. PULMONARY: Chest is clear to auscultation, no wheezing or crackles. ABDOMEN: Soft, nontender, nondistended, normoactive bowel sounds. No palpable organomegaly. MUSCULOSKELETAL: No joint swelling or deformity. EXTREMITIES: No cyanosis, clubbing, or pedal edema. NEUROLOGICAL: Gross neurological examination did not reveal any focal deficits. SKIN: No rashes. Patient Condition at Discharge: Good Plan - Discharge Summary New Discharge Prescriptions: New Meclizine [Antivert] 25 mg PO TID PRN #21 tab PRN Reason: Vertigo Continue Levothyroxine Sodium [Synthroid] 100 mcg PO DAILY Diclofenac Sodium [Voltaren] 50 mg PO TID Pregabalin 150 mg PO TID Cetirizine HCl [Zyrtec] 10 mg PO HS Montelukast [Singulair] 10 mg PO DAILY Atorvastatin [Lipitor] 20 mg PO HS Cyclobenzaprine [Flexeril] 10 mg PO TID PRN PRN Reason: Muscle Pain Discontinued hydroCHLOROthiazide [Hydrodiuril] 25 mg PO DAILY Discharge Medication List Levothyroxine Sodium [Synthroid] 100 mcg PO DAILY 01/06/14 [History] Diclofenac Sodium [Voltaren] 50 mg PO TID 10/28/18 [History] Atorvastatin [Lipitor] 20 mg PO HS 08/16/22 [History] Cetirizine HCl [Zyrtec] 10 mg PO HS 08/16/22 [History] Montelukast [Singulair] 10 mg PO DAILY 08/16/22 [History] Pregabalin 150 mg PO TID 08/16/22 [History] Cyclobenzaprine [Flexeril] 10 mg PO TID PRN 08/18/22 [History] Meclizine [Antivert] 25 mg PO TID PRN #21 tab 08/20/22 [Rx] Follow up Appointment(s)/Referral(s): José Luis Solano MD [Primary Care Provider] - 1-2 days Discharge Disposition: HOME SELF-CARE
--- NOTE | 2022-08-24 11:04 | P.PN ---
Subjective Progress Note Date: 08/20/22 Patient was seen for follow-up. Offers no complaints. Objective - Vital Signs Vital signs: Vital Signs Temp 97.5 F L 08/20/22 07:00 Pulse 46 L 08/20/22 07:00 Resp 14 08/20/22 07:00 BP 117/57 08/20/22 07:00 Pulse Ox 98 08/20/22 07:00 FiO2 Intake & Output 08/19/22 08/20/22 08/20/22 18:59 06:59 18:59 Intake Total 360 118 Balance 360 118 Intake: Oral 360 118 Other: # Voids 2 2 - Exam No change - Labs CBC & Chem 7: 08/18/22 20:29 08/18/22 20:29 Labs: Abnormal Lab Results - Last 24 Hours (Table) 08/18/22 08/19/22 Range/Units 20:29 16:21 POC Glucose (mg/dL) 125 H (70-110) mg/dL Hemoglobin A1c 6.2 H (<=6.0) % Assessment and Plan Assessment: * New onset vertigo, unclear etiology. Probable due to peripheral vestibular dysfunction. No evidence of MS exacerbation * History of multiple sclerosis versus clinically isolated syndrome. Patient not on disease modifying agent. * X tobacco use Plan: * MRI of the brain with and without contrast revealed no evidence of restricted diffusion or abnormal enhancement to suggest active demyelination. Few scattered white matter changes without evidence for post contrast enhancement or restricted diffusion to suggest active demyelination. No evidence of intracranial mass, acute/subacute infarct or abnormal enhancement. I personally reviewed MRI, agree with the findings. * Meclizine as needed * B12 424, folate 12.5, TSH 4.39, lipid panel cholesterol 182, LDL 95, HDL 59 and triglycerides 136 and hemoglobin A1c 6.2 * Telemetry monitoring showing sinus rhythm between 60-70. No other arrhythmia. * Neurologically clear for discharge. May follow up with neurologist as outpatient.
== END 2022-08-20 14:20 | disposition home or self-care (01) | DRG 149 ==
LOC: EC 18:03 → 6NMEDSUR 08-19 00:19 → OBSVTOIN 08-19 00:19 → UNDOADMOB 08-19 00:19 → 6NMEDSUR 08-19 02:52 → INTOOBSV 08-20 07:06 → OBSVTOIN 08-20 07:06 → UNDODISIN 08-20 14:20
PROVIDERS: ADMIT Internal Medicine; ATTEND Internal Medicine
DX: H81.4 Vertigo of central origin (principal); M48.061 Spinal stenosis, lumbar region without neurogenic claudication; R00.1 Bradycardia, unspecified; E78.00 Pure hypercholesterolemia, unspecified; E03.9 Hypothyroidism, unspecified; G35 Multiple sclerosis; D64.9 Anemia, unspecified; R74.01 Elevation of levels of liver transaminase levels; M71.38 Other bursal cyst, other site; I95.9 Hypotension, unspecified; E78.5 Hyperlipidemia, unspecified; Z79.890 Hormone replacement therapy; Z90.710 Acquired absence of both cervix and uterus; Z79.899 Other long term (current) drug therapy; Z88.1 Allergy status to other antibiotic agents; Z87.891 Personal history of nicotine dependence; Z98.51 Tubal ligation status
CPT/HCPCS: 36415; 70450; 70553; 80053; 80061; 81001; 82607; 82746; 83036; 84443; 84484; 85025; 93005; 96360; 96361; 99285

== ENCOUNTER → 2023-01-24 | Outpatient (CLI) | payer MEDICARE ==
--- NOTE | 2023-01-28 09:08 | MM ---
Reason for Exam: Screening (asymptomatic). Last mammogram was performed 1 year(s) and 2 month(s) ago. Patient History: Menarche at age 11. First Full-Term at age 26. Hysterectomy at age 43. Patient used Hormonal Contraceptives for 10 years. Risk Values: Emily 5 year model risk: 1.2%. NCI Lifetime model risk: 9.4%. Prior Study Comparison: 10/31/2017 Bilateral Screening Mammogram, [facility]. 11/28/2018 Bilateral Screening Mammogram, [facility]. 12/07/2021 Bilateral MG screening mammo w CAD, [facility]. Tissue Density: The breast tissue is heterogeneously dense. This may lower the sensitivity of mammography. Findings: Analyzed By CAD. There is no suspicious group of microcalcifications or new suspicious mass in either breast. Overall Assessment: Negative, BI-RAD 1 Management: Screening Mammogram of both breasts in 1 year. . Patient should continue monthly self-breast exams. A clinical breast exam by your physician is recommended on an annual basis. This exam should not preclude additional follow-up of suspicious palpable abnormalities. Note on Emily scores and lifetime risk: 1. A Emily score greater than 3% is considered moderate risk. If this is the case, consider specialist referral to assess eligibility for a risk reducing agent. 2. If overall lifetime risk for the development of breast cancer is 20% or higher, the patient may qualify for future screening with alternating mammogram and breast MRI. Electronically signed and approved by: Pepito Narayan M.D. Radiologis
== END | disposition home or self-care (01) ==
LOC: RADMAMWWP 16:40
PROVIDERS: ATTEND Pediatrics
DX: Z12.31 Encounter for screening mammogram for malignant neoplasm of breast (principal)
CPT/HCPCS: 77067

== ENCOUNTER → 2023-02-04 | Outpatient (CLI) | payer MEDICARE ==
--- NOTE | 2023-02-09 17:14 | CT ---
EXAMINATION TYPE: CT right knee - [facility] Protocol DATE OF EXAM: 02/04/2023 COMPARISON: None HISTORY: 52-year-old female Presurgical planning CT DLP: 1099 mGycm. Automated exposure control for dose reduction was used. TECHNIQUE: CT for surgical planning purposes. Scanning through the bilateral hips, right knee, and juliet th ankles with coronal and sagittal reconstructions. FINDINGS: Degenerative change L5-S1 partially seen. Degenerative change of the SI joints. Sigmoid diverticulosi s. Uterus surgically absent. Left ovary visualized. Mild degenerative change of the hips. The right knee shows advanced tricompartmental degenerative change with a moderate to large joint eff usion and underlying chronic synovitis. Ankles show no gross abnormality. IMPRESSION: 1. Advanced tricompartmental osteoarthrosis right knee with associated joint effusion and some chron ic synovitis. 2. Imaging for surgical planning purposes. 3. Incidental: Sigmoid diverticulosis.
== END | disposition home or self-care (01) ==
LOC: RADCTMAIN 15:43
PROVIDERS: ATTEND Orthopaedic Surgery
DX: M17.0 Bilateral primary osteoarthritis of knee (principal); G35 Multiple sclerosis; E03.8 Other specified hypothyroidism; M25.462 Effusion, left knee; K57.30 Diverticulosis of large intestine without perforation or abscess without bleeding; M65.9 Synovitis and tenosynovitis, unspecified; Z87.891 Personal history of nicotine dependence

== ENCOUNTER → 2023-07-28 | Outpatient (CLI) | payer MEDICARE ==
--- NOTE | 2023-07-28 18:24 | CT ---
EXAMINATION TYPE: CT left knee - [facility] Protocol CT DLP: 921 mGycm, Automated exposure control for dose reduction was used. DATE OF EXAM: 07/28/2023 5:20 PM COMPARISON: None CLINICAL INDICATION:Female, 52 years old with history of M17.12 UNILATERAL PRIMARY OSTEOARTHRITIS, LE FT KNE; PHH, left knee osteoarthritis TECHNIQUE: Axial images were obtained of the CT left knee - [facility] Protocol, Additional coronal and sag ittal reformatted images and soft tissue and bone window were obtained for review. Contrast used: mL of , (None if empty) Oral contrast used: (None if empty) FINDINGS: The visualized portion of the hips demonstrate mild osteoarthrosis changes with osteophyte formation of the acetabulum. No acute intrapelvic process. The bony structures of the pelvis are inta ct. The visualized knee demonstrates osteophyte formation of the tibial plateau, the patella and femoral condyles. There is joint space narrowing and subchondral sclerosis. No evidence of fracture. Visualized ankle demonstrates multifocal osteoarthrosis changes with osteophyte formation and mild trino int space narrowing. No evidence of fractures. IMPRESSION: End-stage osteoarthrosis changes of the left knee.
== END | disposition home or self-care (01) ==
LOC: RADCTMAIN 15:32
PROVIDERS: ATTEND Orthopaedic Surgery
DX: M17.12 Unilateral primary osteoarthritis, left knee (principal)

== ENCOUNTER → 2023-08-11 | Outpatient (CLI) | payer MEDICARE ==
[2023-08-11 12:26] LABS: INR 0.9 (<1.2); Partial Thromboplastin Time 24.9 sec (22.0-30.0); Prothrombin Time 10.4 sec (10.0-12.5)
[2023-08-11 14:44] LABS: HCT 46.1 % (37.2-46.3); HGB 14.9 g/dL (12.0-15.0); MCH 29.3 pg (27.0-32.0); MCHC 32.3 g/dL (32.0-37.0); MCV 90.6 FL (80.0-97.0); Mean Platelet Volume 11.5 FL (9.5-12.2); NRBC Per 100 WBC 0 X 10*3/uL (0.00-0.01); Platelet Count 262 X 10*3/uL (140-440); RBC 5.09 X 10*6/uL (4.10-5.20); RDW 14.8 % (11.5-14.5); WBC 8.02 X 10*3/uL (4.50-10.00)
[2023-08-11 14:48] LABS: ALT 35 U/L (8-44); AST 30 U/L (13-35); Albumin 4.3 g/dL (3.8-4.9); Albumin/Globulin Ratio 1.72 Ratio (1.60-3.17); Alkaline Phosphatase 156 U/L (41-126); Blood Urea Nitrogen 19.3 mg/dL (9.0-27.0); Calcium 9.8 mg/dL (8.7-10.3); Carbon Dioxide 25.9 mmol/L (21.6-31.8); Chloride 104 mmol/L (96-109); Globulin 2.5 g/dL (1.6-3.3); Glucose 110 mg/dL (70-110); Potassium 4.4 mmol/L (3.5-5.5); Sodium 142 mmol/L (135-145); Total Bilirubin 0.4 mg/dL (0.3-1.2); Total Protein 6.8 g/dL (6.2-8.2)
== END | disposition home or self-care (01) ==
LOC: LABPAT 11:26
PROVIDERS: ATTEND Orthopaedic Surgery
DX: Z01.818 Encounter for other preprocedural examination (principal); M17.12 Unilateral primary osteoarthritis, left knee; Z22.322 Carrier or suspected carrier of Methicillin resistant Staphylococcus aureus
CPT/HCPCS: 36415; 80053; 85027; 85610; 85730; 87070; 93005

== ENCOUNTER 2023-09-01 10:27 | Day surgery (SDC) | payer MEDICARE ==
[~2023-09-01 10:27] MED LIST changes: -DEXAMETHASONE SOD PHOSPHATE 10 MG/ML 1 ML VIAL IV ONE; -HEPARIN SODIUM,PORCINE 5,000 UNIT/ML 1 ML VIAL SQ ONE; -LACTATED RINGERS 1,000 ML IV SCH; +LIDOCAINE 1% (10MG/ML) FOR IV START INTRADERMA PRN; -LIDOCAINE 1% 20 ML VIAL (10MG/ML) FOR IV START INTRADERMA PRN; -ONDANSETRON 4 MG/2 ML VIAL IVP ONE; -SCOPOLAMINE 1.5MG/72HR PATCH TRANSDERM ONE; +TRANEXAMIC 1,000 MG/100ML-NACL 1,000 MG in SALINE 1 100ML.BAG IVPB PRN
[2023-09-01] MEDS: ACETAMINOPHEN TAB 500 MG TAB PO PRN (11:25)
[2023-09-01] MEDS: MELOXICAM 7.5 MG TAB PO PRN (11:25)
[2023-09-01] MEDS: DEXAMETHASONE SOD PHOSPHATE 4 MG/ML 1 ML VIAL IV ONE (11:26)
[2023-09-01] MEDS: ONDANSETRON 4 MG/2 ML VIAL IVP PRN (11:26)
[2023-09-01] MEDS: LACTATED RINGERS 1,000 ML IV SCH (11:27)
[2023-09-01] MEDS: MIDAZOLAM 2 MG/2 ML VIAL IVP ONE (12:00)
[2023-09-01] MEDS: IV FLUID CONTINUATION 1,000 ML IV ONE ×2 (12:28→14:30)
[2023-09-01] MEDS ORDERED: LIDOCAINE 1% INJ 10MG/ML (20 ML MDV) ONE (12:58)
[2023-09-01] MEDS ORDERED: PROPOFOL 10 MG/ML 20 ML VIAL IV ONE (12:58)
[2023-09-01] MEDS ORDERED: fentaNYL (PF) 50 MCG/ML 2 ML AMP ONE (12:58)
[2023-09-01] MEDS ORDERED: ePHEDrine 50 MG/ML 1 ML VIAL ONE (12:58)
[2023-09-01] MEDS ORDERED: SUCCINYLCHOLINE CHLORIDE 200 MG/10 ML VIAL IV ONE (12:58)
[2023-09-01] MEDS ORDERED: GLYCOPYRROLATE 0.2 MG/ML 2 ML VIAL ONE (12:58)
[2023-09-01] MEDS ORDERED: MIDAZOLAM 2 MG/2 ML VIAL ONE (12:58)
[2023-09-01] MEDS ORDERED: ROPIVACAINE 5 MG/ML 30 ML VIAL ONE (12:58)
[2023-09-01] MEDS ORDERED: TRANEXAMIC 1,000 MG/100ML-NACL PREMIX BAG ONE (12:58)
[2023-09-01] MEDS ORDERED: DEXAMETHASONE SOD PHOSPHATE 4 MG/ML 1 ML VIAL ONE (12:58)
--- NOTE | 2023-09-01 15:39 | P.OP ---
Date of Procedure: 09/01/23 Procedure(s) Performed: PREOPERATIVE DIAGNOSIS: Left knee severe osteoarthritis genu valgum POSTOPERATIVE DIAGNOSIS: Left knee severe osteoarthritis with genu valgum OPERATION: Left knee cemented total replacement arthroplasty, robotic-assisted using Marcelino system from [employer]. ANESTHESIA: ESTIMATED BLOOD LOSS: 100 ml. ENVIRONMENTAL HEALTH SPECIALIST: April Enrique PA-C (assistance with: patient positioning, retraction, exposure, hemostasis, leg positioning, implantation, irrigation, closure, dressing) COMPLICATIONS: None apparent. COMPONENTS IMPLANTED: Triathlon knee components with anterior lipped tibial spacer INDICATIONS: Cheryl is a 53 year old female with a history of left knee osteoarthritis. She has had previous surgery for patellar tracking issues in the past. The patient's knee is end-stage, and conservative management has failed. Preoperative status of the left knee is 0-120 range of motion, 0 degree of flexion contracture, and 9 degree at least partially correctable valgus deformity. The operation of knee replacement has been discussed at length in the office, as well as potential risks and complications. These are inclusive of, but not limited to: bleeding, infection, scarring, discomfort, blood vessel and nerve damage, need for further surgery, failure to relieve symptoms, persistence, recurrence, or worsening of problems, loosening, dislocation, wear, blood clot, pulmonary embolism, , gait dysfunction, stiffness, and other risks as discussed in the office. The patient elects to proceed and the consent form has been signed. PROCEDURE: The patient was taken to the operating room and positioned on the operating room table in the supine position. Anesthesia was initiated. Care was taken to make sure that all pressure points were adequately padded. The operative left lower extremity was prepped and draped in the usual aseptic fashion using ChloraPrep. Ioban drape was used for the case and the patient received intravenous antibiotics within one hour of the incision. A pneumotourniquet and leg grant were used for the case. The limb was exsanguinated with an Esmarch bandage and the tourniquet was inflated to 300 mmHg. Time-out was called confirming the patient's identity, side, procedure and administration of antibiotics and tranexamic acid. The incision was then created midline directly over the knee, carried down through skin and into the subcutaneous tissues and down to fascia. Full thickness subcutaneous medial flap was developed. Medial parapatellar arthrotomy was performed and the interior of the knee was inspected. There was end-stage osteoarthritis of the knee with a mild to moderate genu valgum type deformity. The fat pad was excised and proximal medial release on the tibia was completed using meticulous dissection and a curved osteotome. Note was made of significant attrition of the anterior and significant degenerative appearance of the cruciate ligaments. The anterior cruciate ligament as well as the posterior cruciate ligament were taken down. The exposure was excellent. The knee was flexed 90 degrees and the patella was everted. 4 mm pins were placed in the medial epicondylectomy the femur and an optical array was attached for the Marcelino system. Similarly, another array was placed within the wound using 4 mm pins at the level of the tibial tubercle. The arrays were tightened and confirmed to be in good position based on the position of the camera. Hip center was taken, followed by double checking the femoral and tibial checkpoints prior to registering the femur and tibia respectively. Once an accurate register was accomplished, spurs were removed around the knee and any necessary soft tissue releases were performed. The knee was taken through range of motion with stress medially and laterally in extension. Once these spatial measurements were taken, stress was performed using curved osteotomes in the me dial and lateral compartments with the knee at 90 of flexion. The extension and flexion spaces were then balanced according to these spatial measurements, by rotating and translating the planned femoral and tibial components in the coronal, sagittal, and axial planes until a satisfactory balance was obtained. Once the gap balancing adjustments were performed on the computer, the robotic arm on the Marcelino robot was used to create the tibial and femoral cuts. These cuts were performed without incident, and the cut fragments were then removed. Medial and lateral menisci were removed at this time, then the posterior capsule was cauterized and any residual loose soft tissue within the lateral posterior and medial aspects of the interior of the knee were removed. Patellar resurfacing was performed using a reamer. The size of the required patellar component was estimated and the patellar surface was then reamed down to a residual thickness which would recreate the samish thickness with the component. The exact placement of the patellar component was adjusted for position based on preoperative x-rays and intraoperative findings. Prior to placing trial components, anesthetic solution consisting of ropivicaine with epinephrine, ketorolac, and clonidine was injected carefully and methodically in a grid pattern using aspiration technique into the soft tissue around the knee circumfe rentially, starting with the deeper tissues first and progressing to fascia, and then finally the skin/subcutaneous tissue. Particular care was taken when injecting the posterior capsule. Trial components were then placed and the tibial component was allowed to self center, with care not to allow any significant internal rotation of the component. The position of this tibial trial was then marked. Confirmation of satisfactory soft tissue balance was confirmed based on the readings of the extension and flexion spaces and by kinematic testing of the knee manually. The latter showed excellent stability both medially and laterally, excellent alignment in the coronal plane, as well as excellent stability anteriorly and posteriorly with regard to tibial translation. There was no evidence of mid flexion instability. Trial components were removed and the cut surfaces of the bone were pulse lavaged thoroughly and dried. We planned for a CS liner and the tibia was prepared for a standard stemmed tibial Triathlon component. Cement was mixed on the back table and applied to the final components. Cement was then applied to the tibial surface and pressurized into the surface using finger pressurization technique. The tibial component was then applied and excess cement was removed after it was impacted securely and noted to be flush with the cut surface. In similar fashion, the cement was applied to the cut femoral surface, pressurized in using finger pressurization and the component was impacted into place. Excess cement was removed. The polyethylene spacer was then implanted and locked into position. The patellar component was then applied in similar technique and a patellar clamp was used to hold the patella in place as the cement hardened. Once the cement had fully hardened, the knee was reinspected. Any other cement extrusion was removed and final kinematic testing showed range of motion from 0 to 130 degrees with excellent stability, both medially and laterally and appropriate alignment of the leg. Patellar tracking was excellent. The knee was then thoroughly pulse lavaged with normal saline. The tourniquet was deflated and hemostasis was obtained with electrocautery and IV tranexamic acid, 1 g given at the start of the operation and 1 g at the start of closure. Closure was with interrupted 0 Vicryl sutures in the fascia/capsule and supplemented with #2 Quill, 2-0 Vicryl suture was used for the subcutaneous tissues and 4-0 Quill for the skin. Cyanoacrylate and Optefoam were then applied. A lightly compressive dressing was applied using Webril and an Hardeep wrap. The patient was then transferred to [facility] and taken to the recovery room in stable condition. Sponge and needle counts were correct.
[2023-09-01] MEDS ORDERED: hydrOXYzine pamoate 25 MG CAP PO PRN (15:45)
[2023-09-01] MEDS ORDERED: bisacodyL 10 MG SUPP RECTAL PRN (15:45)
[2023-09-01] MEDS ORDERED: NALOXONE 0.4 MG/ML 1 ML VIAL IV PRN (15:45)
[2023-09-01] MEDS ORDERED: MAGNESIUM HYDROXIDE 2,400 MG/30 ML CUP PO PRN (15:45)
[2023-09-01] MEDS ORDERED: NA PHOS,M-B/NA PHOS,DI-BA 133 ML ENEMA RECTAL PRN (15:45)
[2023-09-01] MEDS: ROPIVACAINE 1,100 MG, SODIUM CHLORIDE 0.9% 500 ML 330 ML, EMPTY PAIN BALL 1 EACH MISCELLANE PRN (16:19)
[2023-09-01] MEDS: LACTATED RINGERS 1,000 ML IV ONE (16:32)
[2023-09-01] MEDS: HYDROcodone/APAP 7.5-325MG 1 EACH TAB PO PRN (16:37)
--- NOTE | 2023-09-01 16:55 | XR ---
EXAMINATION TYPE: XR knee limited LT DATE OF EXAM: 09/01/2023 COMPARISON: None HISTORY: Postknee replacement TECHNIQUE: 2 view left knee FINDINGS: Tibial and femoral components placed. No acute fracture is evident. No significant joint ef fusion evident. Postsurgical soft tissue changes are evident. IMPRESSION: 1. No acute fracture post knee replacement
[2023-09-01] MEDS: HYDROmorphone 0.5 MG/0.5 ML SYRINGE IVP PRN (17:12)
[2023-09-01 19:01] VITALS: RESP 18
[2023-09-01] MEDS ORDERED: FLUTICASONE NASAL 50MCG/SPRAY 16GM BTL NASAL PRN (20:06)
[2023-09-01] MEDS ORDERED: LORATADINE 10 MG TAB PO PRN (20:06)
[2023-09-01] MEDS ORDERED: MECLIZINE 25 MG TAB PO PRN (20:06)
[2023-09-01] MEDS: ATORVASTATIN 20 MG TAB PO SCH (20:43)
[2023-09-01] MEDS: PREGABALIN 75 MG CAP PO SCH (20:43)
[2023-09-01] MEDS: CYCLOBENZAPRINE 10 MG TAB PO PRN (20:43)
[2023-09-01] MEDS: ASPIRIN 81 MG PO SCH (20:43)
[2023-09-01] MEDS: SENNOSIDES-DOCUSATE SODIUM 1 EACH TAB PO SCH (20:43)
[2023-09-02] MEDS: LEVOTHYROXINE 100 MCG TAB PO SCH (06:16)
[2023-09-02] MEDS: PANTOPRAZOLE 40 MG TABLET PO SCH (06:16)
--- NOTE | 2023-09-02 07:30 | P.ANPRN ---
Procedure Note - Anesthesia - Nerve Block Performed Left Adductor Canal Infusion Time Out Performed: Yes Date of Procedure: 09/01/23 Procedure Start Time: 11:59 Procedure Stop Time: 12:10 Location of Patient: PreOp Indication: Acute Post-Operative Pain, Requested by Surgeon Sedation Type: Sedate with meaningful contact maintained Preparation: Sterile Prep, Sterile Dressing Position: Supine Catheter: Indwelling Needle Types: Pajunk Needle Gauge: 21 Ultrasound used to visualize needle placement: Yes Ultrasound used to observe medication spread: Yes Blood Aspirated: No Pain Paresthesia on Injection Noted: No Resistance on Injection: Normal Image Stored and Saved: Yes Events: Uneventful and Well Tolerated (Bupivacaine 0.5% 20 cc plus dexamethasone 4 mg)
--- NOTE | 2023-09-02 07:31 | P.ANPRN ---
Procedure Note - Anesthesia - Nerve Block Performed Left iPack Single Time Out Performed: Yes Date of Procedure: 09/01/23 Procedure Start Time: 12:11 Procedure Stop Time: 12:14 Location of Patient: PreOp Indication: Acute Post-Operative Pain, Requested by Surgeon Sedation Type: Sedate with meaningful contact maintained Preparation: Sterile Prep Position: Supine Needle Types: Pajunk Needle Gauge: 21 Ultrasound used to visualize needle placement: Yes Ultrasound used to observe medication spread: Yes Blood Aspirated: No Pain Paresthesia on Injection Noted: No Resistance on Injection: Normal Image Stored and Saved: Yes Events: Uneventful and Well Tolerated (Ropivacaine 0.5% 25 cc plus dexamethasone 4 mg)
[2023-09-02 08:16] VITALS: BP 116/75; PULSE 82; TEMP 97.5
[2023-09-02 08:30] LABS: Basophils # (A) 0.01 X 10*3/uL (0.00-0.10); Basophils % (A) 0.1 %; Eosinophils # (A) 0 X 10*3/uL (0.04-0.35); Eosinophils % (A) 0 %; HCT 38.5 % (37.2-46.3); HGB 12.6 g/dL (12.0-15.0); Lymphocytes # (A) 0.87 X 10*3/uL (0.90-5.00); Lymphocytes % (A) 5.9 %; MCH 29.3 pg (27.0-32.0); MCHC 32.7 g/dL (32.0-37.0); MCV 89.5 FL (80.0-97.0); Mean Platelet Volume 11.4 FL (9.5-12.2); Monocytes # (A) 0.87 X 10*3/uL (0.20-1.00); Monocytes % (A) 5.9 %; NRBC Per 100 WBC 0 X 10*3/uL (0.00-0.01); Neutrophils # (A) 12.97 X 10*3/uL (1.80-7.70); Neutrophils % (A) 87.8 %; Platelet Count 237 X 10*3/uL (140-440); RDW 14.5 % (11.5-14.5); WBC 14.76 X 10*3/uL (4.50-10.00)
--- NOTE | 2023-09-02 09:23 | P.DS ---
Providers Expected date of discharge: 09/02/23 Attending physician: Raz Pastrana Consults: 09/01/23 15:45 Consult Physician Routine Consulting Provider: Estevan Reyes Consult Reason/Comments: medical management if pt stays Do you want consulting provider notified?: Yes Primary care physician: José Luis Solano - Discharge Diagnosis(es) (1) Osteoarthritis of left knee Current Visit: Yes Status: Acute (2) S/P total knee arthroplasty Current Visit: Yes Status: Acute Hospital Course: This is a 53-year-old female with known history of degenerative arthritis of the left knee. The patient presented for evaluation as an outpatient. After discu ssion and consideration patient elects to proceed with total knee arthroplasty. The patient is seen preoperatively by Dr. Pastrana and medically cleared for surgery by their primary care physician. Patient is admitted to [facility] on 09/01/2023 for total knee arthroplasty. The procedure is performed without complication or sequelae. The patient is doing well postoperatively. Labs and vital signs are stable on day of discharge. On day of discharge patient's knee incision is healing well. There is minimal erythema. There is no drainage noted at this time. There is minimal soft tissu e swelling to the knee. Patient has full foot and ankle motion without difficulty or pain. Calf is soft and nontender to palpation. Neurovascular status to the left lower extremity is intact. Patient is discharged home in good condition. Please see med rec for accurate list of home medications. Plan - Discharge Summary Discharge Rx Participant: Yes New Discharge Prescriptions: New HYDROcodone/APAP 7.5-325MG [Euclid 7.5-325] 1 - 2 tab PO Q6HR PRN #32 tab PRN Reason: Pain Aspirin [Adult Low Dose Aspirin EC] 81 mg PO BID #1 tab Meloxicam 7.5 mg PO DAILY #30 tab Sennosides-Docusate Sodium [Senokot-S] 1 tab PO BID #60 tablet Ondansetron Odt [Zofran Odt] 4 mg PO Q8HR PRN #14 tab PRN Reason: Nausea No Action Levothyroxine Sodium [Synthroid] 100 mcg PO DAILY Diclofenac Sodium [Voltaren] 50 mg PO TID Pregabalin 150 mg PO BID Omeprazole [PriLOSEC] 40 mg PO DAILY Cetirizine HCl [Zyrtec] 10 mg PO HS PRN PRN Reason: allergy Montelukast [Singulair] 10 mg PO DAILY Atorvastatin [Lipitor] 20 mg PO HS Cyclobenzaprine [Flexeril] 10 mg PO TID PRN PRN Reason: Muscle Pain Meclizine [Antivert] 25 mg PO TID PRN #21 tab PRN Reason: Vertigo Fluticasone Propionate [Flonase Allergy Relief] 1 inh INHALATION DAILY PRN PRN Reason: Allergy Symptoms Discharge Medication List Levothyroxine Sodium [Synthroid] 100 mcg PO DAILY 01/06/14 [History] Diclofenac Sodium [Voltaren] 50 mg PO TID 10/28/18 [History] Atorvastatin [Lipitor] 20 mg PO HS 08/16/22 [History] Cetirizine HCl [Zyrtec] 10 mg PO HS PRN 08/16/22 [History] Montelukast [Singulair] 10 mg PO DAILY 08/16/22 [History] Pregabalin 150 mg PO BID 08/16/22 [History] Cyclobenzaprine [Flexeril] 10 mg PO TID PRN 08/18/22 [History] Meclizine [Antivert] 25 mg PO TID PRN #21 tab 08/20/22 [Rx] Fluticasone Propionate [Flonase Allergy Relief] 1 inh INHALATION DAILY PRN 08/27/23 [History] Omeprazole [PriLOSEC] 40 mg PO DAILY 08/27/23 [History] Aspirin [Adult Low Dose Aspirin EC] 81 mg PO BID #1 tab 09/01/23 [Rx] HYDROcodone/APAP 7.5-325MG [Euclid 7.5-325] 1 - 2 tab PO Q6HR PRN #32 tab 09/01/23 [Rx] Meloxicam 7.5 mg PO DAILY #30 tab 09/01/23 [Rx] Ondansetron Odt [Zofran Odt] 4 mg PO Q8HR PRN #14 tab 09/01/23 [Rx] Sennosides-Docusate Sodium [Senokot-S] 1 tab PO BID #60 tablet 09/01/23 [Rx] Follow up Appointment(s)/Referral(s): April Enrique, AMY [PHYSICIAN EDGE GLUER] - 2 Weeks Activity/Diet/Wound Care/Special Instructions: May bear weight as tolerated with walker. May remove compression stocking and Hardeep wrap and may shower 2 days postop. Keep Optifoam dressing intact 7 days. Discharge Disposition: HOME WITH HOME HEALTH SERVICES
[2023-09-02] MEDS: MONTELUKAST 10 MG TAB PO SCH (10:35)
[2023-09-02] MEDS: MELOXICAM 7.5 MG TAB PO SCH (10:36)
--- NOTE | 2023-09-02 12:28 | P.PN ---
Progress Note - Text 09/02/23 631am -year-old female status post total knee replacement. Patient is an On-Q pump" pain control with a solution running at 8 cc an hour with a VAS of 2, her pain is predominantly located posteriorly. Dressing clean dry and intact. Plan to continue On-Q pump infusion
== END 2023-09-02 11:38 | disposition home health service (06) ==
LOC: OR 10:27 → 4SSUR 17:37 → OR 09-02 11:38
PROVIDERS: ATTEND Orthopaedic Surgery
DX: M17.12 Unilateral primary osteoarthritis, left knee (principal); M21.062 Valgus deformity, not elsewhere classified, left knee; G89.18 Other acute postprocedural pain; E03.9 Hypothyroidism, unspecified; G35 Multiple sclerosis; E78.5 Hyperlipidemia, unspecified; Z96.651 Presence of right artificial knee joint; Z88.1 Allergy status to other antibiotic agents; Z88.5 Allergy status to narcotic agent; Z87.891 Personal history of nicotine dependence; Z79.1 Long term (current) use of non-steroidal anti-inflammatories (NSAID); Z79.890 Hormone replacement therapy; Z79.899 Other long term (current) drug therapy; Z79.82 Long term (current) use of aspirin
CPT/HCPCS: 27447; S2900; 64448; 64999; 85025

== ENCOUNTER → 2024-08-04 | Outpatient (CLI) | payer BC ==
[2024-08-04 15:55] LABS: Eosinophils # (A) 0.39 X 10*3/uL (0.04-0.35); Eosinophils % (A) 3.9 %; HCT 47.8 % (37.2-46.3); HGB 15.6 g/dL (12.0-15.0); MCH 28.5 pg (27.0-32.0); MCHC 32.6 g/dL (32.0-37.0); MCV 87.4 FL (80.0-97.0); Mean Platelet Volume 11.4 FL (9.5-12.2); Monocytes # (A) 0.81 X 10*3/uL (0.20-1.00); Monocytes % (A) 8.1 %; NRBC Per 100 WBC 0 X 10*3/uL (0.00-0.01); Neutrophils # (A) 6.28 X 10*3/uL (1.80-7.70); Neutrophils % (A) 62.7 %; Platelet Count 261 X 10*3/uL (140-440); RBC 5.47 X 10*6/uL (4.10-5.20); RDW 14.6 % (11.5-14.5); WBC 10.01 X 10*3/uL (4.50-10.00)
[2024-08-04 16:05] LABS: BUN/Creat Ratio 19.78 Ratio (12.00-20.00); Blood Urea Nitrogen 17.8 mg/dL (9.0-27.0); Glucose 142 mg/dL (70-110)
[2024-08-04 16:06] LABS: Calcium 9.5 mg/dL (8.7-10.3); Carbon Dioxide 27.1 mmol/L (21.6-31.8); Chloride 107 mmol/L (96-109); Potassium 3.8 mmol/L (3.5-5.5); Sodium 148 mmol/L (135-145)
== END | disposition home or self-care (01) ==
LOC: LABPAT 09:12
PROVIDERS: ATTEND Obstetrics & Gynecology
DX: Z01.818 Encounter for other preprocedural examination (principal); N81.6 Rectocele; E03.9 Hypothyroidism, unspecified
CPT/HCPCS: 80048; 85025; 86850; 86900; 86901; 87086; 93005

== ENCOUNTER 2024-08-09 05:39 | Day surgery (SDC) | payer BC, MEDICARE ==
[2024-08-03 16:52] VITALS: BMI 35.0
[2024-08-09] MEDS ORDERED: SCOPOLAMINE 1 MG/72 HR PATCH TRANSDERM ONE (05:59)
[2024-08-09] MEDS: IV FLUID CONTINUATION 1,000 ML IV ONE ×3 (06:07→09:31)
[2024-08-09] MEDS: DEXAMETHASONE SOD PHOSPHATE 4 MG/ML 1 ML VIAL IV ONE (06:38)
[2024-08-09] MEDS: LACTATED RINGERS 1,000 ML IV SCH ×2 (06:38→08:53)
[2024-08-09] MEDS: ONDANSETRON 4 MG/2 ML VIAL IVP ONE (06:39)
[2024-08-09] MEDS ORDERED: MIDAZOLAM 2 MG/2 ML VIAL IV PRN (07:00)
[2024-08-09] MEDS: ceFAZolin 2 GM in DEXTROSE 5% IN WATER 50 ML IVPB PRN (07:36)
[2024-08-09] MEDS ORDERED: KETOROLAC 30 MG/ML 1 ML VIAL ONE (07:52)
[2024-08-09] MEDS ORDERED: LIDOCAINE 1% INJ 10MG/ML (20 ML MDV) ONE (07:52)
[2024-08-09] MEDS ORDERED: MIDAZOLAM 2 MG/2 ML VIAL ONE (07:52)
[2024-08-09] MEDS ORDERED: PROPOFOL 10 MG/ML 20 ML VIAL IV ONE (07:52)
[2024-08-09] MEDS ORDERED: fentaNYL (PF) 50 MCG/ML 2 ML AMP ONE (07:52)
[2024-08-09] MEDS: VASOPRESSIN 20 UNIT/ML 1 ML VIAL IM ONE (07:56)
[2024-08-09] MEDS: BACITRACIN OINT 1 EACH PACKET TOPICAL ONE (07:58)
[2024-08-09] MEDS ORDERED: ACETAMINOPHEN TAB 325 MG TAB PO PRN (08:35)
[2024-08-09] MEDS ORDERED: SIMETHICONE 80 MG CHEWABLE PO PRN (08:35)
[2024-08-09] MEDS ORDERED: diphenhydrAMINE 25 MG CAP PO PRN (08:35)
[2024-08-09] MEDS ORDERED: METOCLOPRAMIDE 5 MG/ML 2 ML VIAL IVP PRN (08:35)
[2024-08-09] MEDS ORDERED: KETOROLAC 15 MG/ML 1 ML VIAL IVP PRN (08:35)
[2024-08-09] MEDS ORDERED: ONDANSETRON 4 MG/2 ML VIAL IVP PRN (08:35)
[2024-08-09] MEDS ORDERED: diphenhydrAMINE 50 MG/ML 1 ML VIAL IVP PRN (08:35)
--- NOTE | 2024-08-09 08:43 | P.OP ---
Date of Procedure: 08/09/24 Preoperative Diagnosis: Symptomatic rectocele Postoperative Diagnosis: Same Procedure(s) Performed: Posterior colporrhaphy Anesthesia: other (General By LMA) Surgeon: Ty Reddy Siding Mechanic #1: Kelly Brooks Estimated Blood Loss (ml): 10 IV fluids (ml): 600 Urine output (ml): 5 Pathology: none sent Condition: stable Disposition: PACU Operative Findings: Preoperative pelvic examination confirmed a grade 2-3 rectocele present with reasonable apical support and no apparent cystocele. Description of Procedure: The patient was prepped and draped in usual fashion after general anesthesia was administered by the anesthesiologist. The bladder was drained of approximately 10 mL of clear farshad urine. Allis clamps were placed at the hymeneal ring at 5:00 and 7:00. The rectovaginal mucosa was infused with diluted vasopressin solution to the apex of the intended repair. A triangular wedge of skin was removed over the perineal body using a scalpel and discarded. The rectovaginal mucosa was undermined in the midline with the Metzenbaum scissors and divided to the apex of the repair. Allis clamps were placed along the margin of each side. The overlying mucosa was then reflected from the underlying tissues sharply and bluntly. After adequate dissection had been carried out, serial Carla plication stitches were placed using 2-0 PDS from the apex of the repair to the opening of the vagina. The intervening redundant mucosa was trimmed and discarded. The vaginal mucosa was closed with 2-0 Vicryl and the perineorrhaphy repaired in standard fashion in a continuous fashion. The bladder was then catheterized for clear farshad urine and the vagina packed with 1 inch iodophor gauze covered with bacitracin ointment. Estimated blood loss for the case was 10 mL or less. There were no complications. All sponge, instrument, and needle counts were correct. The patient tolerated the procedure well and proceeded to the recovery room in stable condition.
[2024-08-09] MEDS: fentaNYL (PF) 50 MCG/ML 2 ML AMP IV PRN (08:52)
[2024-08-09 10:08] VITALS: TEMP 97.5
[2024-08-09] MEDS: ACETAMINOPHEN IV (For NPO) 1,000 MG in EMPTY BAG 1 BAG IVPB ONE (10:22)
[2024-08-09 11:55] VITALS: BP 147/89; PULSE 80; RESP 18
[2024-08-09] MEDS: SENNOSIDES-DOCUSATE SODIUM 1 EACH TAB PO SCH (12:15)
[2024-08-09] MEDS: IBUPROFEN 600 MG TAB PO PRN (14:24)
--- NOTE | 2024-08-09 15:01 | P.DS ---
Providers Expected date of discharge: 08/09/24 Attending physician: Ty Reddy Primary care physician: Stated None - Discharge Diagnosis(es) (1) Rectocele Current Visit: Yes Status: Acute Hospital Course: The patient is a 53-year-old woman who has previously undergone total abdominal hysterectomy who in office with complaints of increasing pelvic pressure and a bulge at the opening of the vagina. Examination demonstrated a grade 2-3 rectocele present with adequate apical support and no evidence of cystocele. She requested surgical repair and was taken to the operating room where she underwent posterior colporrhaphy this morning in an uncomplicated fashion. As she is otherwise young and healthy and has tolerated a regular diet at lunchtime, she has requested discharge home this afternoon. She will have her Jeffries catheter removed to ensure that she can urinate past the vaginal pack which will remain in place we will remove it at home tomorrow morning. She was instructed to call for any significantly increased bleeding, fever, pain, urinary or GI complaints. She was more importantly instructed due to the heavy lifting over the next 6 weeks and to gain from anything in the vagina to include intercourse. Follow-up in the office in 2 weeks for recheck in 6 weeks routinely. She understood all of her instructions including the instruction to remove the vaginal pack in the morning. She was additionally instructed to do no driving until off of all pain medications or 2 weeks time, whichever came first. She was to take all of her normal home medications and was otherwise to use [id number] analgesic pain medications as needed. Provided a prescription for oxycodone 5 mg, 1-2 p.o. every 6 hours as needed pain, #12 dispensed with no refills. Procedures: #1. Posterior colporrhaphy Patient Condition at Discharge: Stable Plan - Discharge Summary Discharge Rx Participant: Yes New Discharge Prescriptions: No Action RX: Diclofenac Sodium [Voltaren] 50 mg PO TID RX: Pregabalin 150 mg PO BID RX: Omeprazole [PriLOSEC] 40 mg PO QAM Levothyroxine Sodium [Synthroid] 125 mcg PO QAM RX: Cetirizine HCl [Zyrtec] 10 mg PO HS PRN PRN Reason: Allergic Reaction RX: Montelukast [Singulair] 10 mg PO QAM RX: Atorvastatin [Lipitor] 20 mg PO HS RX: Cyclobenzaprine [Flexeril] 10 mg PO HS RX: Meclizine [Antivert] 25 mg PO TID PRN #21 tab PRN Reason: Vertigo Fluticasone Propionate [Flonase Allergy Relief] 1 inh INHALATION DAILY PRN PRN Reason: Allergy Symptoms Discharge Medication List RX: Diclofenac Sodium [Voltaren] 50 mg PO TID 10/28/18 [History] RX: Atorvastatin [Lipitor] 20 mg PO HS 08/16/22 [History] RX: Cetirizine HCl [Zyrtec] 10 mg PO HS PRN 08/16/22 [History] RX: Montelukast [Singulair] 10 mg PO QAM 08/16/22 [History] RX: Pregabalin 150 mg PO BID 08/16/22 [History] RX: Cyclobenzaprine [Flexeril] 10 mg PO HS 08/18/22 [History] RX: Meclizine [Antivert] 25 mg PO TID PRN #21 tab 08/20/22 [Rx] Fluticasone Propionate [Flonase Allergy Relief] 1 inh INHALATION DAILY PRN 08/27/23 [History] RX: Omeprazole [PriLOSEC] 40 mg PO QAM 08/27/23 [History] Levothyroxine Sodium [Synthroid] 125 mcg PO QAM 08/03/24 [History] Follow up Appointment(s)/Referral(s): Ty Reddy MD [STAFF PHYSICIAN] - 2 Weeks Discharge Disposition: HOME SELF-CARE
== END 2024-08-09 16:55 | disposition home or self-care (01) ==
LOC: OR 05:39 → 4FBP 09:00 → OR 16:55
PROVIDERS: ATTEND Obstetrics & Gynecology
DX: N81.6 Rectocele (principal); E78.00 Pure hypercholesterolemia, unspecified; E03.9 Hypothyroidism, unspecified; M81.0 Age-related osteoporosis without current pathological fracture; K21.9 Gastro-esophageal reflux disease without esophagitis; R42 Dizziness and giddiness; Z79.890 Hormone replacement therapy; Z79.1 Long term (current) use of non-steroidal anti-inflammatories (NSAID); Z79.899 Other long term (current) drug therapy; Z87.891 Personal history of nicotine dependence; Z90.710 Acquired absence of both cervix and uterus; Z88.1 Allergy status to other antibiotic agents; Z88.5 Allergy status to narcotic agent; Z88.8 Allergy status to other drugs, medicaments and biological substances
CPT/HCPCS: 57250; J1100; J0690; J2405; J3010; J0131

== ENCOUNTER → 2024-09-01 | Outpatient (CLI) | payer BC ==
--- NOTE | 2024-09-01 13:31 | MM ---
Reason for Exam: Screening (asymptomatic). Last mammogram was performed 1 year(s) and 7 month(s) ago. Patient History: Menarche at age 11. First Full-Term at age 26. Hysterectomy at age 43. Patient used Hormonal Contraceptives for 10 years. Risk Values: Emily 5 year model risk: 1.3%. NCI Lifetime model risk: 9.1%. Prior Study Comparison: 11/28/2018 Bilateral Screening Mammogram, [facility]. 12/07/2021 Bilateral MG screening mammo w CAD, [facility]. 01/24/2023 Bilateral MG screening mammo w CAD, [facility]. Tissue Density: There are scattered areas of fibroglandular density. Findings: Analyzed By CAD. Benign-appearing right axillary lymph nodes are redemonstrated. There is no suspicious group of microcalcifications or new suspicious mass in either breast. Overall Assessment: Negative, BI-RAD 1 Management: Screening Mammogram of both breasts in 1 year. . Patient should continue monthly self-breast exams. A clinical breast exam by your physician is recommended on an annual basis. This exam should not preclude additional follow-up of suspicious palpable abnormalities. Note on Emily scores and lifetime risk: 1. A Emily score greater than 3% is considered moderate risk. If this is the case, consider specialist referral to assess eligibility for a risk reducing agent. 2. If overall lifetime risk for the development of breast cancer is 20% or higher, the patient may qualify for future screening with alternating mammogram and breast MRI. [facility], , 09/01/2024 1:28 PM. Electronically signed and approved by: Eddie Cuba M.D.
== END | disposition home or self-care (01) ==
LOC: RADMAMWWP 11:25
PROVIDERS: ATTEND Obstetrics & Gynecology
DX: Z12.31 Encounter for screening mammogram for malignant neoplasm of breast (principal); R92.323 Mammographic fibroglandular density, bilateral breasts; Z92.0 Personal history of contraception
CPT/HCPCS: 77067